=== PATIENT | female | born 1990 | race Asian ===

== ENCOUNTER 2016-05-23 07:32 | Emergency (ER) | payer OTHER ==
[2016-05-23] MEDS ORDERED: HYDROmorphone 1 MG/ML SYRINGE IVP STA ×2 (07:51→08:43)
[2016-05-23] MEDS ORDERED: ONDANSETRON 4 MG/2 ML VIAL IVP STA ×3 (07:51→11:54)
[2016-05-23] MEDS ORDERED: SODIUM CHLORIDE 0.9% 1,000 ML IV ONE ×2 (07:51→09:52)
[2016-05-23] MEDS ORDERED: ONDANSETRON 4 MG/2 ML VIAL ONE ×3 (08:09→11:55)
[2016-05-23] MEDS ORDERED: MORPHINE 2 MG/ML SYRINGE ONE (08:10)
[2016-05-23] MEDS ORDERED: HYDROmorphone 1 MG/ML SYRINGE ONE ×2 (08:14→08:47)
[2016-05-23] MEDS ORDERED: ACETAMINOPHEN 1,000 MG/100 ML 100 ML IV STA (11:53)
[2016-05-23] MEDS ORDERED: KETOROLAC 60 MG/2 ML VIAL IVP STA (11:53)
[2016-05-23] MEDS ORDERED: KETOROLAC 30 MG/ML VIAL ONE (11:55)
[2016-05-23] MEDS ORDERED: IOPAMIDOL-300 100 ML VIAL IVP ONE (12:21)
[2016-05-23] MEDS ORDERED: ACETAMINOPHEN 1,000 MG/100 ML 100 ML IV ONE (12:29)
[2016-05-23] MEDS ORDERED: PROMETHAZINE INJ 12.5 MG in SODIUM CHLORIDE 0.9% 50 ML IV STA (12:37)
[2016-05-23] MEDS ORDERED: PROMETHAZINE 25 MG/1 ML VIAL ONE (12:53)
== END 2016-05-23 14:23 | disposition home or self-care (01) ==
CPT/HCPCS: 36415; 74177; 76700; 76856; 80053; 81003; 81025; 83690; 84703; 85025; 93975; 96361; 96365; 96375; 96376; 99284; J0131; J1170; Q9967

== ENCOUNTER 2016-05-24 02:30 | Emergency (ER) | payer OTHER ==
[2016-05-24] MEDS ORDERED: HYDROmorphone 1 MG/ML SYRINGE IVP STA ×2 (04:09→06:35)
[2016-05-24] MEDS ORDERED: PROMETHAZINE INJ 12.5 MG in SODIUM CHLORIDE 0.9% 50 ML IV STA (04:09)
[2016-05-24] MEDS ORDERED: PROMETHAZINE 25 MG/1 ML VIAL ONE (04:13)
[2016-05-24] MEDS ORDERED: HYDROmorphone 1 MG/ML SYRINGE ONE ×2 (04:13→06:35)
[2016-05-24] MEDS ORDERED: KETOROLAC 60 MG/2 ML VIAL IVP STA (06:35)
[2016-05-24] MEDS ORDERED: KETOROLAC 30 MG/ML VIAL ONE (06:35)
== END 2016-05-24 08:06 | disposition home or self-care (01) ==
DX: R10.33 Periumbilical pain (principal); R10.31 Right lower quadrant pain; R11.0 Nausea
CPT/HCPCS: 36415; 85025; 96365; 96375; 96376; 99283; 99284; J1170

== ENCOUNTER 2016-05-26 13:33 | Observation (INO) | payer OTHER ==
[2016-05-26] MEDS ORDERED: HYDROmorphone 1 MG/ML SYRINGE IVP STA ×2 (13:52→15:13)
[2016-05-26] MEDS ORDERED: ONDANSETRON 4 MG/2 ML VIAL IVP STA (13:52)
[2016-05-26] MEDS ORDERED: ONDANSETRON 4 MG/2 ML VIAL ONE (14:02)
[2016-05-26] MEDS ORDERED: HYDROmorphone 1 MG/ML SYRINGE ONE ×2 (14:02→15:15)
[2016-05-26] MEDS ORDERED: SODIUM CHLORIDE 0.9% 1,000 ML IV ONE (14:14)
[2016-05-26] MEDS ORDERED: PROMETHAZINE INJ 25 MG in SODIUM CHLORIDE 0.9% 50 ML IV STA (15:14)
[2016-05-26] MEDS ORDERED: PROMETHAZINE 25 MG/1 ML VIAL ONE (15:15)
[2016-05-26] MEDS ORDERED: MORPHINE 2 MG/ML SYRINGE IVP STA (16:16)
[2016-05-26] MEDS ORDERED: ACETAMINOPHEN 1,000 MG/100 ML 100 ML IV STA (16:16)
[2016-05-26] MEDS ORDERED: MORPHINE 2 MG/ML SYRINGE ONE (16:38)
[2016-05-26] MEDS ORDERED: ACETAMINOPHEN 1,000 MG/100 ML 100 ML IV ONE (16:38)
[2016-05-26] MEDS ORDERED: MIDAZOLAM 2 MG/2 ML VIAL IVP ONE (17:28)
[2016-05-26] MEDS ORDERED: HYDROmorphone 1 MG/ML SYRINGE IVP ONE (17:28)
[2016-05-26] MEDS ORDERED: fentaNYL 100 MCG/2 ML VIAL IVP ONE (17:28)
[2016-05-26] MEDS ORDERED: SODIUM CHLORIDE 0.9% 500 ML IV ONE (17:58)
[2016-05-26] MEDS ORDERED: LACTATED RINGERS 1,000 ML IV ONE ×3 (17:58→20:33)
[2016-05-26] MEDS ORDERED: BUPIVACAINE 0.25%-EPI 1:200000 PF 30 ML VIAL SUBQ ONE ×2 (18:46)
[2016-05-26] MEDS ORDERED: MEPERIDINE 50 MG/ML SYRINGE ONE (20:53)
[2016-05-26] MEDS ORDERED: MIDAZOLAM 2 MG/2 ML VIAL ONE (21:02)
[2016-05-26] MEDS: fentaNYL 100 MCG/2 ML VIAL ONE ×2 (21:39→21:44)
[2016-05-26] MEDS ORDERED: LORazepam 2 MG/ML SYRINGE ONE (21:57)
[2016-05-26] MEDS ORDERED: METOCLOPRAMIDE 10 MG/2 ML VIAL IVP ONE (22:04)
[2016-05-26] MEDS ORDERED: HYDROcod/ACETAM 5/325 MG TABLET PO PRN (23:19)
[2016-05-26] MEDS ORDERED: PHENOL THROAT SPRAY 177 ML MM PRN (23:21)
[2016-05-27] MEDS: HYDROmorphone 1 MG/ML SYRINGE IVP PRN ×4 (00:04→06:35)
[2016-05-27] MEDS: ONDANSETRON 4 MG/2 ML VIAL IVP PRN ×3 (00:04→07:34)
[2016-05-27] MEDS: IBUPROFEN 600 MG TABLET PO SCH ×4 (00:05→21:33)
[2016-05-27] MEDS: LACTATED RINGERS 1,000 ML IV SCH ×3 (04:02→18:47)
[2016-05-27] MEDS ORDERED: HYDROmorphone 1 MG/ML SYRINGE IVP ONE (06:10)
[2016-05-27] MEDS ORDERED: ONDANSETRON 4 MG/2 ML VIAL IVP PRN ×2 (07:52→20:14)
[2016-05-27] MEDS ORDERED: HYDROmorphone 1 MG/ML SYRINGE IVP PRN (07:52)
[2016-05-27] MEDS ORDERED: SODIUM CHLORIDE FLUSH 0.9% 10 ML SYRINGE IVP ONE (08:20)
[2016-05-27] MEDS ORDERED: DOCUSATE SODIUM 100 MG CAPSULE PO SCH (09:00)
[2016-05-27] MEDS ORDERED: MAGNESIUM HYDROXIDE 2,400 MG/30 ML UDC PO PRN ×2 (10:37→20:17)
[2016-05-27] MEDS: HYDROcod/ACETAM 5/325 MG TABLET PO PRN ×2 (11:01→15:42)
[2016-05-27] MEDS ORDERED: PROCHLORPERAZINE 10 MG/2 ML VIAL IVP PRN (16:41)
[2016-05-27] MEDS ORDERED: fentaNYL 100 MCG/2 ML VIAL IVP PRN (16:44)
[2016-05-27] MEDS ORDERED: LIDOCAINE-MPF 2% 5 ML VIAL IM ONE (17:28)
[2016-05-27] MEDS ORDERED: ACETAMINOPHEN 1,000 MG/100 ML VIAL IV ONE (17:28)
[2016-05-27] MEDS ORDERED: NEOSTIGMINE 1 MG/1 ML 10 ML MDV IVP ONE (17:28)
[2016-05-27] MEDS ORDERED: SUCCINYLCHOLINE 200 MG/10 ML VIAL IVP ONE (17:28)
[2016-05-27] MEDS ORDERED: DEXAMETHASONE 4 MG/ML VIAL IVP ONE (17:28)
[2016-05-27] MEDS ORDERED: ROCURONIUM 50 MG/5 ML VIAL IVP ONE (17:28)
[2016-05-27] MEDS ORDERED: ONDANSETRON 4 MG/2 ML VIAL IVP ONE (17:28)
[2016-05-27] MEDS ORDERED: PROPOFOL 200 MG/20 ML VIAL IVP ONE (17:28)
[2016-05-27] MEDS ORDERED: GLYCOPYRROLATE 1 MG/5 ML VIAL IVP ONE (17:28)
[2016-05-27] MEDS ORDERED: ZOLPIDEM 5 MG TABLET PO PRN (21:58)
[2016-05-28] MEDS: LACTATED RINGERS 1,000 ML IV SCH ×3 (01:02→20:15)
[2016-05-28] MEDS: IBUPROFEN 600 MG TABLET PO SCH ×2 (06:36→13:17)
[2016-05-28] MEDS: HYDROcod/ACETAM 5/325 MG TABLET PO PRN ×3 (06:40→11:17)
[2016-05-28] MEDS ORDERED: BISACODYL 5 MG TABLET PO SCH (09:00)
[2016-05-28] MEDS ORDERED: HYDROcod/ACETAM 5/325 MG TABLET PO PRN (12:06)
[2016-05-28] MEDS ORDERED: ALPRAZolam 0.25 MG TABLET PO PRN (12:50)
[2016-05-28] MEDS ORDERED: CITALOPRAM 10 MG TABLET PO SCH (13:00)
[2016-05-28] MEDS ORDERED: MAGNESIUM CITRATE 296 ML BOTTLE PO PRN (13:21)
[2016-05-28] MEDS ORDERED: NORGESTREL-ETHINYL ESTRADIOL TABLET PO SCH (17:30)
== END 2016-05-28 20:20 | disposition home or self-care (01) ==
PROC: 0UB04ZZ Excision of Right Ovary, Percutaneous Endoscopic Approach (ICD-10-PCS; principal; 2016-05-26 16:15)
DX: N83.11 Corpus luteum cyst of right ovary (principal); K66.1 Hemoperitoneum; G89.18 Other acute postprocedural pain; D64.9 Anemia, unspecified; F41.9 Anxiety disorder, unspecified; N73.6 Female pelvic peritoneal adhesions (postinfective); K59.00 Constipation, unspecified; N94.6 Dysmenorrhea, unspecified; Z79.899 Other long term (current) drug therapy
CPT/HCPCS: 36415; 58662; 80053; 81001; 81025; 83690; 85025; 86850; 86900; 86901; 86920; 87491; 87591; 88305; 88342; 96361; 96365; 96375; 96376; 99217; 99218; 99284; A9270; J0131; J1170; J2060; J7120; S4993

== ENCOUNTER 2016-05-30 07:54 | Emergency (ER) | payer OTHER ==
[2016-05-30] MEDS ORDERED: SODIUM CHLORIDE 0.9% 1,000 ML IV ONE (09:19)
[2016-05-30] MEDS ORDERED: HYDROmorphone 1 MG/ML SYRINGE IVP STA ×2 (10:34→12:33)
[2016-05-30] MEDS ORDERED: ONDANSETRON 4 MG/2 ML VIAL IVP STA ×2 (10:34→12:33)
[2016-05-30] MEDS ORDERED: HYDROmorphone 1 MG/ML SYRINGE ONE ×2 (10:40→12:33)
[2016-05-30] MEDS ORDERED: ONDANSETRON 4 MG/2 ML VIAL ONE ×2 (10:40→12:34)
[2016-05-30] MEDS ORDERED: IOPAMIDOL-300 100 ML VIAL IVP ONE (12:25)
== END 2016-05-30 15:14 | disposition home or self-care (01) ==
DX: G89.18 Other acute postprocedural pain (principal); R10.2 Pelvic and perineal pain
CPT/HCPCS: 36415; 74177; 80053; 81001; 83690; 85025; 96361; 96374; 96375; 96376; 99284; J1170; Q9967

== ENCOUNTER 2016-06-03 | Outpatient (CLI) | payer OTHER | END 2016-06-03 13:26 | disposition critical access hospital (66) | CPT/HCPCS: A0425; A0427 ==

== ENCOUNTER 2016-06-03 13:43 | Observation (INO) | payer OTHER ==
[2016-06-03] MEDS ORDERED: SODIUM CHLORIDE 0.9% 1,000 ML IV ONE (13:57)
[2016-06-03] MEDS ORDERED: ACETAMINOPHEN 1,000 MG/100 ML 100 ML IV STA (13:57)
[2016-06-03] MEDS ORDERED: LORazepam 2 MG/ML SYRINGE IVP STA ×2 (14:51→17:12)
[2016-06-03] MEDS ORDERED: LORazepam 2 MG/ML SYRINGE ONE ×2 (14:54→17:06)
[2016-06-03] MEDS ORDERED: MORPHINE 2 MG/ML SYRINGE IVP STA (15:46)
[2016-06-03] MEDS ORDERED: MORPHINE 2 MG/ML SYRINGE ONE (15:50)
[2016-06-03] MEDS ORDERED: IOPAMIDOL-300 100 ML VIAL IVP ONE (16:32)
[2016-06-03] MEDS ORDERED: ACETAMINOPHEN 325 MG TABLET PO PRN (17:43)
[2016-06-03] MEDS ORDERED: oxyCODONE 5 MG TABLET PO PRN (17:43)
[2016-06-03] MEDS ORDERED: ONDANSETRON 4 MG/2 ML VIAL IVP PRN (17:43)
[2016-06-03] MEDS ORDERED: SODIUM CHLORIDE FLUSH 0.9% 10 ML SYRINGE IVP PRN (17:43)
[2016-06-03] MEDS ORDERED: TEMAZEPAM 15 MG CAPSULE PO PRN (17:43)
[2016-06-03] MEDS ORDERED: NS W/20 MEQ KCL 1,000 ML IV SCH (18:00)
[2016-06-03] MEDS ORDERED: ALPRAZolam 0.25 MG TABLET PO PRN (18:14)
[2016-06-03] MEDS ORDERED: POLYETHYLENE GLYCOL 3350 17 GM PACKET PO SCH (19:37)
[2016-06-03] MEDS: SODIUM CHLORIDE 0.9% 1,000 ML IV SCH (20:18)
[2016-06-03] MEDS ORDERED: PROMETHAZINE INJ 25 MG in SODIUM CHLORIDE 0.9% 50 ML IV PRN (22:04)
[2016-06-03] MEDS: IBUPROFEN 600 MG TABLET PO SCH (22:45)
[2016-06-03] MEDS: oxyCODONE 5 MG TABLET PO PRN (22:46)
[2016-06-03] MEDS: SODIUM CHLORIDE FLUSH 0.9% 10 ML SYRINGE IVP SCH (22:46)
[2016-06-04] MEDS: oxyCODONE 5 MG TABLET PO PRN (06:21)
[2016-06-04] MEDS: SODIUM CHLORIDE 0.9% 1,000 ML IV SCH (06:22)
[2016-06-04] MEDS: IBUPROFEN 600 MG TABLET PO SCH ×2 (06:22→13:29)
[2016-06-04] MEDS: SODIUM CHLORIDE FLUSH 0.9% 10 ML SYRINGE IVP SCH ×2 (07:08→14:03)
[2016-06-04] MEDS ORDERED: POLYETHYLENE GLYCOL 3350 17 GM PACKET PO SCH (09:00)
[2016-06-04] MEDS ORDERED: NORGESTREL-ETHINYL ESTRADIOL TABLET PO SCH (09:00)
[2016-06-04] MEDS ORDERED: BISACODYL 5 MG TABLET PO SCH (09:00)
[2016-06-04] MEDS ORDERED: CITALOPRAM 10 MG TABLET PO SCH (09:00)
[2016-06-04] MEDS ORDERED: IRON SUCROSE 300 MG in SODIUM CHLORIDE 0.9% 250 ML IV ONE (12:00)
== END 2016-06-04 16:00 | disposition home or self-care (01) ==
DX: R55 Syncope and collapse (principal); G89.18 Other acute postprocedural pain; R10.30 Lower abdominal pain, unspecified; D50.0 Iron deficiency anemia secondary to blood loss (chronic); F41.9 Anxiety disorder, unspecified; F43.21 Adjustment disorder with depressed mood; S09.90XA Unspecified injury of head, initial encounter; W18.2XXA Fall in (into) shower or empty bathtub, initial encounter; Z98.890 Other specified postprocedural states
CPT/HCPCS: 36415; 70450; 71275; 76856; 80053; 81001; 81025; 82728; 83540; 83605; 83690; 83735; 84100; 84439; 84443; 84466; 85025; 85379; 85610; 85651; 85730; 86140; 86850; 86900; 86901; 87040; 93005; 93010; 93975; 96361; 96365; 96367; 96375; 96376; 99217; 99218; 99284; A9270; J1756; J2060; J7040; Q9967

== ENCOUNTER 2016-06-30 14:44 | Outpatient (CLI) | payer OTHER | END 2016-06-30 14:45 | disposition home or self-care (01) | DX: D50.9 Iron deficiency anemia, unspecified (principal) ==

== ENCOUNTER 2016-07-17 08:00 | Outpatient (CLI) | payer OTHER | END 2016-07-17 08:01 | disposition home or self-care (01) | DX: H60.90 Unspecified otitis externa, unspecified ear (principal); N83.209 Unspecified ovarian cyst, unspecified side ==

== ENCOUNTER 2017-09-25 22:39 | Emergency (ER) | payer OTHER ==
--- NOTE | 2017-09-25 23:42 | ED Physician Documentation ---
PD HPI ABD PAIN - Stated complaint Stated Complaint: RLQ PX/N/V - Chief complaint Chief Complaint: Abd Pain - History obtained from History obtained from: Patient - History of Present Illness Timing - onset: How many days ago (nausea x 3 days, vomiting and abd. pain today ) Timing - duration: Days Timing - details: Gradual onset Pain level now: 6 Quality: Pain Location: Periumbilical (left abdomen) Radiation: Other (no radiation) Worsened by: Palpation Associated symptoms: Nausea, Vomiting. 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 HEENT: None Psych: Anxiety Musculoskeletal: Osteoarthritis Derm: None - Past Surgical History Past Surgical History: Yes /CHIEF WELLNESS OFFICER: Other - Present Medications Home Medications: Ambulatory Orders Medication Instructions Recorded Confirmed Citalopram [CeleXA] 10 mg ORAL DAILY 05/30/16 06/06/16 ALPRAZolam [Xanax] 0.25 mg PO Q6H PRN #0 tablet 06/04/16 06/06/16 Bisacodyl [Dulcolax] 10 mg PO DAILY tablet 06/04/16 06/06/16 Ibuprofen [Motrin] 600 mg PO TID tablet 06/04/16 06/06/16 Norgestrel-Ethinyl Estradiol 1 tab PO DAILY tablet 06/04/16 06/06/16 [Ogestrel] oxyCODONE [Roxicodone] 5 mg PO Q4HR PRN #0 tablet 06/04/16 06/06/16 Promethazine [Phenergan] 1 tab ORAL Q6HR 06/06/16 06/06/16 Promethazine [Phenergan] 25 - 50 mg PO Q6H PRN #10 tab 09/26/17 oxyCODONE/ACET 5/325 [Percocet 5 1 - 2 each PO Q6H PRN #14 tablet 09/26/17 mg/325 mg] - Allergies Allergies/Adverse Reactions: Allergies Allergy/AdvReac Type Severity Reaction Status Date / Time No Known Drug Allergies Allergy Verified 09/25/17 22:50 - Social History Does the pt smoke?: No Smoking Status: Never smoker Does the pt drink ETOH?: No Does the pt have substance abuse?: No - Immunizations Immunizations are current?: Yes - POLST Patient has POLST: No PD ED PE NORMAL - Vitals Vital signs reviewed: Yes - General General: Alert and oriented X 3, No acute distress, Well developed/nourished - HEENT HEENT: Moist mucous membranes - Cardiac Cardiac: RRR, No murmur - Respiratory Respiratory: No respiratory distress, Clear bilaterally - Abdomen Abdomen: Soft, Non distended - Back Back: No CVA TTP - Derm Derm: Normal color, Warm and dry, No rash PD ED PE EXPANDED - Abdomen Abdomen: Tender to palpation, Left abdomen. No: Rebound, Guarding Results - Vitals Vitals: Oxygen O2 Source Room air - Labs Labs: Laboratory Tests 09/25/17 09/25/17 09/26/17 23:38 23:38 00:20 WBC 9.7 RBC 4.65 Hgb 13.6 Hct 40.8 MCV 87.7 MCH 29.2 MCHC 33.3 RDW 13.6 Plt Count 325 MPV 7.3 L Neut # (Auto) 5.8 Lymph # (Auto) 2.8 [place] # (Auto) 0.6 Eos # (Auto) 0.4 Baso # (Auto) 0.1 Absolute Nucleated RBC 0.01 Nucleated RBC % 0.1 Sodium Potassium Chloride Carbon Dioxide Anion Gap BUN Creatinine Estimated GFR (MDRD) Glucose Calcium Total Bilirubin AST ALT Alkaline Phosphatase Total Protein Albumin Globulin Albumin/Globulin Ratio Lipase Urine Color YELLOW Urine Clarity CLEAR Urine pH 6.5 Ur Specific [place] 1.020 1.020 Urine Protein NEGATIVE Urine Glucose (UA) NEGATIVE Urine Ketones NEGATIVE Urine Occult Blood NEGATIVE Urine Nitrite NEGATIVE Urine Bilirubin NEGATIVE Urine Urobilinogen 0.2 (NORMAL) Ur Leukocyte Esterase TRACE H Urine RBC 0-5 Urine WBC 6-10 H Ur Squamous Epith Cells MOD Squamous H Amorphous Sediment Moderate Urine Bacteria Few Ur Microscopic Review INDICATED Urine Culture Comments NOT INDICATED Urine HCG, Qual NEGATIVE 09/26/17 00:20 WBC RBC Hgb Hct MCV MCH MCHC RDW Plt Count MPV Neut # (Auto) Lymph # (Auto) [place] # (Auto) Eos # (Auto) Baso # (Auto) Absolute Nucleated RBC Nucleated RBC % Sodium 138 Potassium 3.8 Chloride 103 Carbon Dioxide 25 Anion Gap 10.0 BUN 13 Creatinine 0.6 Estimated GFR (MDRD) 119 Glucose 106 H Calcium 9.0 Total Bilirubin 0.3 AST 24 ALT 21 Alkaline Phosphatase 61 Total Protein 7.3 Albumin 4.1 Globulin 3.2 Albumin/Globulin Ratio 1.3 Lipase 35 Urine Color Urine Clarity Urine pH Ur Specific [place] Urine Protein Urine Glucose (UA) Urine Ketones Urine Occult Blood Urine Nitrite Urine Bilirubin Urine Urobilinogen Ur Leukocyte Esterase Urine RBC Urine WBC Ur Squamous Epith Cells Amorphous Sediment Urine Bacteria Ur Microscopic Review Urine Culture Comments Urine HCG, Qual - Rads (name of study) CT A/P Radiology: Prelim report reviewed, See rad report PD MEDICAL DECISION MAKING - ED course Complexity details: reviewed results, re-evaluated patient, considered differential, d/w patient - Sepsis Event Vital Signs: Oxygen O2 Source Room air Departure - Departure Disposition: 01 Home, Self Care Clinical Impression: Abdominal pain Qualifiers: Abdominal location: generalized Qualified Code(s): R10.84 - Generalized abdominal pain Condition: Good Instructions: ED Abdominal Pain Unkn Cause Follow-Up: Kirsty Mckeon PA-C [Primary Care Provider] - Within 3 Days Prescriptions: oxyCODONE/ACET 5/325 [Percocet 5 mg/325 mg] 1 - 2 each PO Q6H PRN #14 tablet PRN Reason: Pain Promethazine [Phenergan] 25 - 50 mg PO Q6H PRN #10 tab PRN Reason: Nausea / Vomiting Forms: Activity restrictions Discharge Date/Time: 09/26/17 03:15
[2017-09-25 23:49] LABS: BILIRUBIN,URINE NEGATIVE (NEGATIVE); GLUCOSE, URINE (UA) NEGATIVE (NEGATIVE); KETONES,URINE (UA) NEGATIVE (NEGATIVE); LEUKOCYTE ESTERASE, URINE TRACE (NEGATIVE); NITRITE,URINE NEGATIVE (NEGATIVE); OCCULT BLOOD,URINE NEGATIVE (NEGATIVE); PH,URINE 6.5 PH (5.0-7.5); PROTEIN,URINE NEGATIVE (NEGATIVE); UROBILINOGEN,URINE 0.2 (NORMAL) E.U./dL (NORMAL)
[2017-09-25 23:51] LABS: CLARITY,URINE CLEAR (CLEAR); HCG UR QUAL NEGATIVE
[2017-09-25 23:55] LABS: AMORPHOUS SEDIMENT,UR Moderate /LPF; BACTERIA,URINE Few /HPF (None Seen); RBC,URINE 0-5 /HPF (0-5); SQUAMOUS EPITHELIAL CELL,UR MOD Squamous (<= Few)
[2017-09-26] MEDS: SODIUM CHLORIDE 0.9% 1,000 ML IV STA (00:18)
[2017-09-26] MEDS: HYDROmorphone 1 MG/ML CARPUJECT IVP STA ×3 (00:18→02:57)
[2017-09-26] MEDS: PROMETHAZINE INJ 25 MG in SODIUM CHLORIDE 0.9% 50 ML IV STA (00:22)
[2017-09-26 00:30] LABS: BASOPHILS # (AUTO) 0.1 10^3/uL (0.0-0.1); BASOPHILS % (AUTO) 0.8 %; EOSINOPHILS # (AUTO) 0.4 10^3/uL (0.0-0.7); EOSINOPHILS % (AUTO) 4.4 %; HGB - HEMOGLOBIN 13.6 g/dL (12.0-16.0); LYMPHOCYTES # (AUTO) 2.8 10^3/uL (1.5-3.5); LYMPHOCYTES % (AUTO) 29.1 %; MEAN CORPUSCULAR HEMOGLOBIN 29.2 pg (27.0-31.0); MEAN CORPUSCULAR HGB CONC 33.3 g/dL (32.0-36.0); MEAN CORPUSCULAR VOLUME 87.7 fL (81.0-99.0); MEAN PLATELET VOLUME 7.3 fL (7.9-10.8); MONOCYTES # (AUTO) 0.6 10^3/uL (0.0-1.0); MONOCYTES % (AUTO) 6.3 %; NEUTROPHILS # (AUTO) 5.8 10^3/uL (1.5-6.6); NEUTROPHILS % (AUTO) 59.4 %; PLT - PLATELET COUNT 325 10^3/uL (130-450); RED BLOOD COUNT 4.65 10^6/uL (4.20-5.40); RED CELL DISTRIBUTION WIDTH 13.6 % (12.0-15.0); WHITE BLOOD COUNT 9.7 x10^3/uL (4.8-10.8)
[2017-09-26 00:39] LABS: ALBUMIN 4.1 g/dL (3.2-5.5); ALBUMIN/GLOBULIN RATIO 1.3 (1.0-2.2); BILIRUBIN,TOTAL 0.3 mg/dL (0.2-1.0); CREATININE 0.6 mg/dL (0.4-1.0); TOTAL PROTEIN 7.3 g/dL (6.7-8.2)
[2017-09-26] MEDS ORDERED: IOPAMIDOL-300 100 ML VIAL ONE (00:56)
[2017-09-26] MEDS: IOPAMIDOL-300 100 ML VIAL IVP ONE (01:15)
--- NOTE | 2017-09-26 01:33 | CT Report ---
Procedure Date: 09/26/2017 Accession Number: [id number] / [id number] Procedure: CT - Abdomen/Pelvis W/ CPT Code: FULL RESULT: EXAM: CT ABDOMEN AND PELVIS EXAM DATE: 09/26/2017 01:16 AM. CLINICAL HISTORY: Abdomen pain. COMPARISONS: Abdomen and pelvis w/ 05/30/2016. TECHNIQUE: Routine helical CT imaging was performed through the abdomen and pelvis. IV contrast: Yes. Enteric contrast: No. Reconstructions: Coronal and sagittal. In accordance with CT protocol optimization, one or more of the following dose reduction techniques were utilized for this exam: automated exposure control, adjustment of mA and/or KV based on patient size, or use of iterative reconstructive technique. FINDINGS: Lung Bases: Unremarkable. Liver: Unremarkable. No suspicious masses. Gallbladder/Bile Ducts: Unremarkable. Spleen: Unremarkable. Pancreas: Unremarkable. Adrenal Glands: Unremarkable. Kidneys: Unremarkable. No suspicious masses or hydronephrosis. Peritoneal Cavity/Bowel: No bowel obstruction or inflammatory process seen. No free air or significant free fluid. No masses or adenopathy. The appendix is normal. No excessive stool burden. Pelvic Organs: Bladder, uterus, and adnexa appear unremarkable. Vasculature: No aneurysms or other significant abnormality. Bones: No significant abnormality. Other: None. IMPRESSION: Normal abdomen and pelvis CT. [facility]
[2017-09-26] MEDS: oxyCODONE/ACET 5/325 Prepack 4 PO STA (02:58)
[2017-09-26 03:03] VITALS: BP 141/88
[2017-09-26] MEDS: HYDROcod/ACETAM 5/325 MG TABLET PO STA (03:07)
== END 2017-09-26 03:15 | disposition home or self-care (01) ==
LOC: ED 22:39
DX: R10.84 Generalized abdominal pain (principal)
CPT/HCPCS: 36415; 74177; 80053; 81001; 81025; 83690; 85025; 96365; 96375; 96376; 99283; 99284; J1170; J7040; Q9967; 81003; 87086

== ENCOUNTER 2017-12-22 23:35 | Emergency (ER) | payer OTHER ==
[2017-12-23] MEDS ORDERED: KETOROLAC 60 MG/2 ML VIAL IM STA (00:08)
[2017-12-23] MEDS ORDERED: ACETAMINOPHEN 500 MG TABLET PO STA (00:23)
--- NOTE | 2017-12-23 01:16 | CT Report ---
Reason: neck pain Procedure Date: 12/23/2017 Accession Number: [id number] / [id number] Procedure: CT - Cervical Spine W/O CPT Code: FULL RESULT: EXAM: CT CERVICAL SPINE WITHOUT CONTRAST DATE: 12/23/2017 12:37 AM. HISTORY: Neck pain. COMPARISONS: CERVICAL SPINE W/O 01/24/2016 11:10 AM. TECHNIQUE: Thin-section axial images were acquired of the cervical spine without contrast. Post-processing: Coronal and sagittal reformats. Other: None. In accordance with CT protocol optimization, one or more of the following dose reduction techniques were utilized for this exam: automated exposure control, adjustment of mA and/or KV based on patient size, or use of iterative reconstructive technique. FINDINGS: Alignment: Dextrocurvature in the lower cervical region may be positional. There is no spondylolisthesis. Bones: No fracture or bone lesion. Interspace Levels/Facets: C1-C2: Unremarkable. C2-C3: Unremarkable. C3-C4: Unremarkable. C4-C5: Unremarkable. C5-C6: A small calcified central protrusion is present without spinal canal or foraminal stenosis. C6-C7: Unremarkable. C7-T1: Unremarkable. Musculature: Normal. No fatty atrophy. Other: The paravertebral and prevertebral soft tissues are unremarkable. The lung apices are clear. IMPRESSION: No acute cervical spine fracture. [facility]
--- NOTE | 2017-12-23 01:29 | ED Physician Documentation ---
PD HPI NECK PAIN - Stated complaint Stated Complaint: NECK PX - Chief complaint Chief Complaint: Trauma Hd/Nk - History obtained from History obtained from: Patient - Additional information Additional information: 27-year-old female presents the emergency department with complaints of neck pain. The patient reports injuring her neck at work while attempting to help patient move. The patient had an episode of paresthesias into her arms. The patient denies any current sensation of paresthesias. The patient denies motor weakness or sensory changes in her upper extremities. The patient denies he adache, vision changes or lower extremity weakness. The patient reports a history of prior neck pain. No fevers, no chills no history of IV drug use or saddle anesthesia. Symptoms are described as moderate. 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 HEENT: None Psych: Anxiety Musculoskeletal: Osteoarthritis Derm: None - Past Surgical History Past Surgical History: Yes /COMPENSATION EXPERT: Other - Present Medications Home Medications: Ambulatory Orders Medication Instructions Recorded Confirmed Citalopram [CeleXA] 10 mg ORAL DAILY 05/30/16 06/06/16 ALPRAZolam [Xanax] 0.25 mg PO Q6H PRN #0 tablet 06/04/16 06/06/16 Bisacodyl [Dulcolax] 10 mg PO DAILY tablet 06/04/16 06/06/16 Ibuprofen [Motrin] 600 mg PO TID tablet 06/04/16 06/06/16 Norgestrel-Ethinyl Estradiol 1 tab PO DAILY tablet 06/04/16 06/06/16 [Ogestrel] oxyCODONE [Roxicodone] 5 mg PO Q4HR PRN #0 tablet 06/04/16 06/06/16 Promethazine [Phenergan] 1 tab ORAL Q6HR 06/06/16 06/06/16 Promethazine [Phenergan] 25 - 50 mg PO Q6H PRN #10 tab 09/26/17 oxyCODONE/ACET 5/325 [Percocet 5 1 - 2 each PO Q6H PRN #14 tablet 09/26/17 mg/325 mg] Cyclobenzaprine [Flexeril] 10 mg PO TID PRN #20 tablet 12/23/17 - Allergies Allergies/Adverse Reactions: Allergies Allergy/AdvReac Type Severity Reaction Status Date / Time No Known Drug Allergies Allergy Verified 12/22/17 23:46 - Social History Does the pt smoke?: No Smoking Status: Never smoker Does the pt drink ETOH?: No Does the pt have substance abuse?: No - Immunizations Immunizations are current?: Yes - POLST Patient has POLST: No PD ED PE NORMAL - General General: Alert and oriented X 3, No acute distress - HEENT HEENT: Atraumatic, PERRL, EOMI, Ears normal - Neck Neck: Supple, no meningeal sign, Other (The patient has some mild midline tenderness. The patient has significant paraspinal tenderness. There is no erythematous changes. There is no bogginess, no crepitus or swelling.) - Cardiac Cardiac: RRR - Respiratory Respiratory: No respiratory distress - Extremities Extremities: No deformity, Normal ROM s pain - Neuro Neuro: Alert and oriented X 3, No motor deficit, Normal speech, Other (The patient has equal apparel designer strength, the patient has normal motor strength in bilateral upper extremities. The patient has normal cap refill and normal sensation light touch in the upper extremities. The patient has normal radial pulses bilaterally) - Psych Psych: Normal affect Results - Vitals Vitals: Vital Signs - 24 hr 12/22/17 12/23/17 12/23/17 23:40 00:09 00:21 Temperature 36.2 C L 36.6 C Heart Rate 93 85 85 Respiratory 18 16 Rate Blood Pressure 131/102 H 143/101 H 128/110 H O2 Saturation 96 98 99 Oxygen O2 Source Room air - Rads (name of study) CT cervical spine Radiology: Final report received (No acute cervical spine fracture. ) PD MEDICAL DECISION MAKING - ED course ED course: Currently, the patient appears appropriate for discharge home and ongoing outpatient management. I recommended that she follow-up with primary care so that they can arrange for outpatient physical therapy and possibly an MRI as an outpatient. I discussed warning signs and recommended returning to the emergency department immediately for any worsening or any concerns. - Sepsis Event Vital Signs: Vital Signs - 24 hr 12/22/17 12/23/17 12/23/17 23:40 00:09 00:21 Temperature 36.2 C L 36.6 C Heart Rate 93 85 85 Respiratory 18 16 Rate Blood Pressure 131/102 H 143/101 H 128/110 H O2 Saturation 96 98 99 Oxygen O2 Source Room air Departure - Departure Disposition: 01 Home, Self Care Clinical Impression: Cervical strain, acute Qualifiers: Encounter type: initial encounter Qualified Code(s): S16.1XXA - Strain of muscle, fascia and tendon at neck level, initial encounter Condition: Good Instructions: ED Sprain Strain Neck Follow-Up: Kirsty Mckeon PA-C [Primary Care Provider] - (Please ask your care physicians wet process assistant head miller to arrange for an outpatient referral to physical therapy and possibly for an outpatient MRI) Prescriptions: Cyclobenzaprine [Flexeril] 10 mg PO TID PRN #20 tablet PRN Reason: Spasms Comments: Please return to the emergency department for worsening symptoms or any concerns
[2017-12-23 01:46] VITALS: BP 155/99
== END 2017-12-23 01:47 | disposition home or self-care (01) ==
LOC: ED 23:35
DX: S16.1XXA Strain of muscle, fascia and tendon at neck level, initial encounter (principal); X50.0XXA Overexertion from strenuous movement or load, initial encounter; Y93.F2 Activity, caregiving, lifting; Y92.89 Other specified places as the place of occurrence of the external cause; Y99.0 Civilian activity done for income or pay
CPT/HCPCS: 72125; 99283; A9270

== ENCOUNTER 2018-05-17 08:45 | Emergency (ER) | payer BC, OTHER ==
[2018-05-17 08:53] VITALS: BP 164/100
[2018-05-17] MEDS ORDERED: SODIUM CHLORIDE 0.9% 1,000 ML IV ONE (09:24)
[2018-05-17] MEDS ORDERED: PROCHLORPERAZINE 10 MG/2 ML VIAL IVP STA (09:25)
[2018-05-17] MEDS ORDERED: diphenhydrAMINE INJ 50 MG/ML VIAL IVP STA (09:25)
[2018-05-17] MEDS ORDERED: DEXAMETHASONE 10 MG/ML VIAL IVP STA (09:25)
[2018-05-17 09:57] LABS: BASOPHILS # (AUTO) 0.1 10^3/uL (0.0-0.1); BASOPHILS % (AUTO) 1.1 %; EOSINOPHILS # (AUTO) 0.2 10^3/uL (0.0-0.7); EOSINOPHILS % (AUTO) 2.6 %; HGB - HEMOGLOBIN 13.6 g/dL (12.0-16.0); LYMPHOCYTES # (AUTO) 2.5 10^3/uL (1.5-3.5); LYMPHOCYTES % (AUTO) 35.7 %; MEAN CORPUSCULAR HEMOGLOBIN 29.9 pg (27.0-31.0); MEAN CORPUSCULAR VOLUME 82.9 fL (81.0-99.0); MONOCYTES # (AUTO) 0.5 10^3/uL (0.0-1.0); MONOCYTES % (AUTO) 7.3 %; NEUTROPHILS # (AUTO) 3.7 10^3/uL (1.5-6.6); NEUTROPHILS % (AUTO) 53.3 %; PLT - PLATELET COUNT 309 10^3/uL (130-450); RED BLOOD COUNT 4.56 10^6/uL (4.20-5.40); RED CELL DISTRIBUTION WIDTH 12.9 % (12.0-15.0); WHITE BLOOD COUNT 6.9 x10^3/uL (4.8-10.8)
[2018-05-17 10:09] LABS: BILIRUBIN,URINE NEGATIVE (NEGATIVE); GLUCOSE, URINE (UA) NEGATIVE (NEGATIVE); KETONES,URINE (UA) NEGATIVE (NEGATIVE); LEUKOCYTE ESTERASE, URINE MODERATE (NEGATIVE); NITRITE,URINE NEGATIVE (NEGATIVE); OCCULT BLOOD,URINE NEGATIVE (NEGATIVE); PROTEIN,URINE NEGATIVE (NEGATIVE); UROBILINOGEN,URINE 0.2 (NORMAL) E.U./dL (NORMAL)
[2018-05-17 10:10] LABS: CLARITY,URINE HAZY (CLEAR)
[2018-05-17 10:11] LABS: HCG UR QUAL NEGATIVE
[2018-05-17 10:11] LABS: ALBUMIN 4.2 g/dL (3.2-5.5); ALBUMIN/GLOBULIN RATIO 1.4 (1.0-2.2); BILIRUBIN,TOTAL 0.6 mg/dL (0.2-1.0); CREATININE 0.5 mg/dL (0.4-1.0); TOTAL PROTEIN 7.2 g/dL (6.7-8.2)
[2018-05-17 10:16] LABS: BACTERIA,URINE Few /HPF (None Seen); RBC,URINE None Seen /HPF (0-5); SQUAMOUS EPITHELIAL CELL,UR MANY Squamous (<= Few)
--- NOTE | 2018-05-17 10:34 | CT Report ---
Reason: New onset headache, with diplopia. Procedure Date: 05/17/2018 Accession Number: [id number] / [id number] Procedure: CT - Head W/O CPT Code: FULL RESULT: EXAM: CT HEAD EXAM DATE: 05/17/2018 10:16 AM. CLINICAL HISTORY: New onset headache, with diplopia. COMPARISON: HEAD W/O 06/03/2016 2:43 PM. TECHNIQUE: Multiaxial CT images were obtained from the foramen magnum to the vertex. Reformats: Sagittal and coronal. IV contrast: None. In accordance with CT protocol optimization, one or more of the following dose reduction techniques were utilized for this exam: automated exposure control, adjustment of mA and/or KV based on patient size, or use of iterative reconstructive technique. FINDINGS: Parenchyma: No intraparenchymal hemorrhage. No evidence of mass, midline shift, or CT findings of infarction. Subramanian-white differentiation is distinct. Extraaxial Spaces: Normal for age. No subdural or epidural collections identified. Ventricles: Normal in size and position. Sinuses and Orbits: Mild right posterior ethmoid sinus disease. Remainder of the paranasal sinuses and mastoid air cells are clear. Bones: No evidence of fracture or calvarial defect. Other: Globes and orbits are unremarkable. IMPRESSION: 1. No acute intracranial abnormality is identified. [facility]
--- NOTE | 2018-05-17 10:42 | ED Physician Documentation ---
History of Present Illness - Stated complaint Stated Complaint: VISION CHANGES/N/V - Chief complaint Chief Complaint: Neuro - History obtained from History obtained from: Patient - History of Present Illness Timing: How many days ago (2) - Treatment prior to arrival Treatment prior to arrival: Meclizine and Phenergan without relief. - Additonal information Additional information: The patient is a 27-year-old female who presents with dizziness that started 2 days ago, and is worse today. She describes it as vertigo. She reports associated headache with pressure in the left temporal region. She has had associated nausea, with vomiting 3 times since last night. She also reports photosensitivity. She denies fever, sore throat, cough, numbness or weakness. She denies history of similar symptoms in the past. She tried taking meclizine and Phenergan which had been prescribed for her mother 2 years ago. That did not provide relief. Review of Systems Constitutional: reports: Other (Dizziness, described as vertigo.). denies: Fever Eyes: reports: Photophobia Ears: denies: Tinnitus/ringing Nose: denies: Congestion Throat: denies: Sore throat Cardiac: denies: Chest pain / pressure Respiratory: denies: Dyspnea, Cough GI: reports: Nausea, Vomiting. denies: Abdominal Pain : reports: LMP (3 weeks ago.). denies: Dysuria Skin: denies: Rash Musculoskeletal: denies: Neck pain, Back pain Neurologic: reports: Headache (left sided). 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 : None HEENT: None Psych: Anxiety Musculoskeletal: Osteoarthritis Derm: None - Past Surgical History Past Surgical History: Yes /BUSINESS EXCELLENCE MANAGER: Other - Present Medications Home Medications: Ambulatory Orders Medication Instructions Recorded Confirmed Norgestrel-Ethinyl Estradiol 1 tab PO DAILY tablet 06/04/16 05/17/18 [Ogestrel] Promethazine [Phenergan] 1 tab ORAL Q6HR 06/06/16 05/17/18 Escitalopram [Lexapro] 10 mg PO DAILY 05/17/18 05/17/18 Meclizine HCl [Motion Sickness 25 mg PO TID PRN #20 tablet 05/17/18 Relief] Ondansetron Odt [Zofran] 4 mg TL Q6H PRN #10 tablet 05/17/18 - Allergies Allergies/Adverse Reactions: Allergies Allergy/AdvReac Type Severity Reaction Status Date / Time No Known Drug Allergies Allergy Verified 05/17/18 08:53 - Social History Does the pt smoke?: No Smoking Status: Never smoker Does the pt drink ETOH?: No Does the pt have substance abuse?: No - Immunizations Immunizations are current?: Yes - POLST Patient has POLST: No PD ED PE NORMAL - Vitals Vital signs reviewed: Yes (Initially hypertensive.) - General General: Alert and oriented X 3, Well developed/nourished - HEENT HEENT: Atraumatic, PERRL, EOMI, Ears normal, Pharynx benign, Other (Fundi without papilledema.) - Neck Neck: Supple, no meningeal sign, No adenopathy - Cardiac Cardiac: RRR - Respiratory Respiratory: No respiratory distress, Clear bilaterally - Abdomen Abdomen: Soft, Non tender - Back Back: No CVA TTP - Derm Derm: No rash - Extremities Extremities: No edema, No calf tenderness / cord - Neuro Neuro: Alert and oriented X 3, No motor deficit, No sensory deficit, Normal speech Eye Opening: Spontaneous Motor: Obeys Commands Verbal: Oriented GCS Score: 15 Results - Vitals Vitals: Oxygen O2 Source Room air - Labs Labs: Laboratory Tests 05/17/18 05/17/18 05/17/18 09:40 09:40 09:40 WBC 6.9 RBC 4.56 Hgb 13.6 Hct 37.8 MCV 82.9 MCH 29.9 MCHC 36.0 RDW 12.9 Plt Count 309 MPV 7.0 L Neut # (Auto) 3.7 Lymph # (Auto) 2.5 [place] # (Auto) 0.5 Eos # (Auto) 0.2 Baso # (Auto) 0.1 Absolute Nucleated RBC 0.00 Nucleated RBC % 0.0 ESR 8 Sodium 138 Potassium 3.3 L Chloride 102 Carbon Dioxide 25 Anion Gap 11.0 BUN 8 Creatinine 0.5 Estimated GFR (MDRD) 147 Glucose 100 Calcium 9.0 Total Bilirubin 0.6 AST 19 ALT 16 Alkaline Phosphatase 67 Total Protein 7.2 Albumin 4.2 Globulin 3.0 Albumin/Globulin Ratio 1.4 Lipase 33 Urine Color Urine Clarity Urine pH Ur Specific [place] Urine Protein Urine Glucose (UA) Urine Ketones Urine Occult Blood Urine Nitrite Urine Bilirubin Urine Urobilinogen Ur Leukocyte Esterase Urine RBC Urine WBC Ur Squamous Epith Cells Urine Bacteria Ur Microscopic Review Urine Culture Comments Urine HCG, Qual 05/17/18 10:02 WBC RBC Hgb Hct MCV MCH MCHC RDW Plt Count MPV Neut # (Auto) Lymph # (Auto) [place] # (Auto) Eos # (Auto) Baso # (Auto) Absolute Nucleated RBC Nucleated RBC % ESR Sodium Potassium Chloride Carbon Dioxide Anion Gap BUN Creatinine Estimated GFR (MDRD) Glucose Calcium Total Bilirubin AST ALT Alkaline Phosphatase Total Protein Albumin Globulin Albumin/Globulin Ratio Lipase Urine Color YELLOW Urine Clarity HAZY Urine pH 7.0 Ur Specific [place] 1.020 Urine Protein NEGATIVE Urine Glucose (UA) NEGATIVE Urine Ketones NEGATIVE Urine Occult Blood NEGATIVE Urine Nitrite NEGATIVE Urine Bilirubin NEGATIVE Urine Urobilinogen 0.2 (NORMAL) Ur Leukocyte Esterase MODERATE H Urine RBC None Seen Urine WBC 11-25 H Ur Squamous Epith Cells MANY Squamous H Urine Bacteria Few Ur Microscopic Review INDICATED Urine Culture Comments NOT INDICATED Urine HCG, Qual NEGATIVE - Rads (name of study) Head CT w/o Radiology: Prelim report reviewed, EMP read contemporaneously, See rad report (No acute intracranial abnormality is identified.) PD MEDICAL DECISION MAKING - ED course Complexity details: reviewed results, re-evaluated patient, considered differential, d/w patient, d/w family ED course: The patient's presentation is significant for headache and vertiginous symptoms, the etiology of which is uncertain. It may be migraine. A head CT was performed and is negative. There is no clinical evidence of intracranial hemorrhage. Sedimentation rate is normal, making temporal arteritis unlikely. Her presentation does not suggest meningitis. Treatment in the emergency department included administration of normal saline 1 L IV, Compazine 10 mg IV, Benadryl 25 mg IV, and dexamethasone 10 mg IV. Her symptoms completely resolved with the above treatment. She is being discharged with prescriptions for Zofran and for meclizine. I discussed with her and her male marker machine attendant the results of her workup, outpatient treatment and follow-up, as well as potentially worrisome signs or symptoms that should prompt reevaluation in the emergency department. Departure - Departure Disposition: 01 Home, Self Care Clinical Impression: Vertigo Headache Qualifiers: Headache type: unspecified Headache chronicity pattern: acute headache Intractability: not intractable Qualified Code(s): R51 - Headache Condition: Stable Instructions: ED Cephalgia Unspecified, ED Vertigo Unspecified Follow-Up: Kirsty Mckeon PA-C [Primary Care Provider] - Prescriptions: Meclizine HCl [Motion Sickness Relief] 25 mg PO TID PRN #20 tablet PRN Reason: Dizziness Ondansetron Odt [Zofran] 4 mg TL Q6H PRN #10 tablet PRN Reason: Nausea / Vomiting Comments: Drink plenty of fluids. You can use Phenergan or Zofran as prescribed if needed for nausea. You can use ibuprofen, up to 800 mg 3 times daily if needed for headache. You can use meclizine as prescribed if needed for dizziness. Follow-up with your primary physician within 1-2 weeks. Call to schedule an appointment. Return to the emergency department if you develop increasing headache, persistent vomiting, fever with shaking chills, or otherwise worsening symptoms. Forms: Activity restrictions Discharge Date/Time: 05/17/18 10:54
== END 2018-05-17 10:54 | disposition home or self-care (01) ==
LOC: ED 08:45
DX: R42 Dizziness and giddiness (principal); R51 Headache
CPT/HCPCS: 36415; 70450; 80053; 81001; 81025; 83690; 85025; 85651; 96374; 96375; 99283; 99284; J1200; 81003; 87086

== ENCOUNTER 2018-07-08 16:19 | Outpatient (CLI) | payer OTHER, BC ==
--- NOTE | 2018-07-09 12:06 | MRI Report ---
Reason: SHOULDER IMPINGMENT SYNDROME,RIGHT Procedure Date: 07/08/2018 Accession Number: [id number] / [id number] Procedure: MRI - Shoulder RT W/O CPT Code: FULL RESULT: EXAM: RIGHT SHOULDER MRI WITHOUT CONTRAST EXAM DATE: 07/08/2018 05:40 PM. CLINICAL HISTORY: Right shoulder pain. Limited range of motion. COMPARISON: None. TECHNIQUE: Multiplanar, multisequence T1-weighted and fluid-sensitive sequences of the shoulder without contrast. Other: None. FINDINGS: Acromioclavicular Region: The acromion is type II. Minimal subchondral edema at the distal clavicle. No marginal osteophyte formation. The coracoacromial and coracoclavicular ligaments are intact. No subacromial/subdeltoid bursal fluid. Glenohumeral Region: No subluxation. No effusion or loose bodies. The articular cartilage is unremarkable. The glenohumeral ligaments and joint capsule are unremarkable. Bone Marrow: No fracture, marrow edema or bone lesions. Labrum: The labrum is unremarkable on this nonarthrographic study. Musculature/Rotator Cuff: The subscapularis, supraspinatus, infraspinatus, and teres minor tendons are intact. No edema or fatty atrophy. Biceps Tendon: The long head of the biceps tendon and biceps skinny are intact. Other: The subcutaneous tissues are unremarkable. IMPRESSION: 1. Normal rotator cuff tendons. 2. Grossly normal labrum. 3. Normal biceps tendon. [facility] MUSCULOSKELETAL RADIOLOGY SECTION
== END 2018-07-08 16:20 | disposition home or self-care (01) ==
LOC: DI 16:19
PROVIDERS: ATTEND Physician Assistant Medical
DX: M75.41 Impingement syndrome of right shoulder (principal)

== ENCOUNTER 2020-10-01 16:53 | Outpatient (CLI) | payer BC ==
[2020-10-01 20:57] LABS: BASOPHILS # (AUTO) 0.1 10^3/uL (0.0-0.1); BASOPHILS % (AUTO) 1.1 %; EOSINOPHILS # (AUTO) 0.2 10^3/uL (0.0-0.7); HCT - HEMATOCRIT 42.2 % (37.0-47.0); HGB - HEMOGLOBIN 14.1 g/dL (12.0-16.0); LYMPHOCYTES # (AUTO) 2.3 10^3/uL (1.5-3.5); LYMPHOCYTES % (AUTO) 31.4 %; MEAN CORPUSCULAR HEMOGLOBIN 29.1 pg (27.0-31.0); MEAN CORPUSCULAR HGB CONC 33.4 g/dL (32.0-36.0); MEAN CORPUSCULAR VOLUME 87.2 fL (81.0-99.0); MEAN PLATELET VOLUME 9.1 fL (7.9-10.8); MONOCYTES # (AUTO) 0.4 10^3/uL (0.0-1.0); NEUTROPHILS # (AUTO) 4.3 10^3/uL (1.5-6.6); NEUTROPHILS % (AUTO) 58.2 %; PLT - PLATELET COUNT 354 10^3/uL (130-450); RED BLOOD COUNT 4.84 10^6/uL (4.20-5.40); WHITE BLOOD COUNT 7.4 x10^3/uL (4.8-10.8)
[2020-10-01 21:01] LABS: BILIRUBIN,URINE NEGATIVE (NEGATIVE); CLARITY,URINE CLOUDY (CLEAR); GLUCOSE, URINE (UA) NEGATIVE (NEGATIVE); KETONES,URINE (UA) NEGATIVE (NEGATIVE); LEUKOCYTE ESTERASE, URINE TRACE (NEGATIVE); NITRITE,URINE NEGATIVE (NEGATIVE); OCCULT BLOOD,URINE NEGATIVE (NEGATIVE); PROTEIN,URINE NEGATIVE (NEGATIVE); UROBILINOGEN,URINE 0.2 (NORMAL) E.U./dL (NORMAL)
[2020-10-01 21:07] LABS: AMORPHOUS SEDIMENT,UR Marked /LPF; BACTERIA,URINE Rare /HPF (None Seen); RBC,URINE 0-5 /HPF (0-5); SQUAMOUS EPITHELIAL CELL,UR MOD Squamous (<= Few); WBC,URINE 0-3 /HPF (0-5)
[2020-10-01 21:13] LABS: ALBUMIN 4.3 g/dL (3.2-5.5); ALBUMIN/GLOBULIN RATIO 1.3 (1.0-2.2); ALKALINE PHOSPHATASE 71 IU/L (42-121); ALT ALANINE AMINOTRANSFERASE 18 IU/L (10-60); AST ASPARTATE AMINOTRANSFERASE 23 IU/L (10-42); BILIRUBIN,TOTAL 0.7 mg/dL (0.2-1.0); BUN - BLOOD UREA NITROGEN 11 mg/dL (6-20); CALCIUM 9.1 mg/dL (8.5-10.3); CARBON DIOXIDE - CO2 25 mmol/L (21-32); CHLORIDE 102 mmol/L (101-111); CHOL/HDL RATIO 3.1 (<4.4); CHOLESTEROL 236 mg/dL; CREATININE 0.6 mg/dL (0.4-1.0); GFR - MDRD 117 (>89); GLUCOSE 101 mg/dL (70-100); HDL CHOLESTEROL 77 mg/dL; LDL CHOLESTEROL,CALCULATED 123 mg/dL; LDL/HDL RATIO 1.6 (<4.4); POTASSIUM 3.9 mmol/L (3.5-5.0); SODIUM 136 mmol/L (135-145); TOTAL PROTEIN 7.7 g/dL (6.7-8.2); TRIGLYCERIDES 181 mg/dL; VLDL CHOLESTEROL 36 mg/dL
[2020-10-01 21:24] LABS: THYROID STIMULATING HORMONE 1.35 uIU/mL (0.34-5.60)
== END 2020-10-01 16:54 | disposition home or self-care (01) ==
LOC: LAB.N 16:53
PROVIDERS: ATTEND Physician Assistant Medical
DX: Z00.00 Encounter for general adult medical examination without abnormal findings (principal); R10.2 Pelvic and perineal pain
CPT/HCPCS: 36415; 80053; 80061; 81001; 83721; 84443; 85025; 87086

== ENCOUNTER 2020-10-09 03:23 | Emergency (ER) | payer BC ==
--- NOTE | 2020-10-09 04:50 | ED Physician Documentation ---
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 No: Fever, Vomiting, Diarrhea, Constipation - Additional information Additional information: sudden onset RLQ/right pelvic pain 1-2 hours ago while at work (in [facility]). pain is worse with palpation, movement. Review of Systems Constitutional: denies: Fever, Chills, Sweats Cardiac: reports: Reviewed and negative Respiratory: reports: Reviewed and negative GI: reports: Abdominal Pain, Nausea, Vomiting. 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 : None HEENT: None Psych: Anxiety Musculoskeletal: Osteoarthritis Derm: None - Past Surgical History Past Surgical History: Yes /DISPATCHER SERVICE CHIEF: Other - Present Medications Home Medications: Ambulatory Orders Medication Instructions Recorded Confirmed norgestrel-ethinyl estradioL 1 tab PO DAILY tablet 06/04/16 05/17/18 [Ogestrel] Promethazine [Phenergan] 1 tab ORAL Q6HR 06/06/16 05/17/18 Escitalopram [Lexapro] 10 mg PO DAILY 05/17/18 05/17/18 Meclizine HCl [Motion Sickness 25 mg PO TID PRN #20 tablet 05/17/18 Relief] Ondansetron Odt [Zofran] 4 mg TL Q6H PRN #10 tablet 05/17/18 oxyCODONE [Roxicodone] 5 - 10 mg PO Q6H PRN #14 tablet 10/09/20 - Allergies Allergies/Adverse Reactions: Allergies Allergy/AdvReac Type Severity Reaction Status Date / Time No Known Drug Allergies Allergy Verified 10/09/20 03:25 - Social History Does the pt smoke?: No Smoking Status: Never smoker Does the pt drink ETOH?: No Does the pt have substance abuse?: No - Immunizations Immunizations are current?: Yes - POLST Patient has POLST: No PD ED PE NORMAL - Vitals Vital signs reviewed: Yes - General General: Alert and oriented X 3, No acute distress, Well developed/nourished - Cardiac Cardiac: RRR, No murmur - Respiratory Respiratory: No respiratory distress, Clear bilaterally - Abdomen Abdomen: Soft, Non tender, Non distended - Back Back: No CVA TTP Results - Vitals Vitals: Oxygen O2 Source Room air - Labs Labs: Laboratory Tests 10/09/20 10/09/20 10/09/20 05:07 05:07 06:29 WBC 8.3 RBC 4.80 Hgb 13.9 Hct 42.9 MCV 89.4 MCH 29.0 MCHC 32.4 RDW 13.0 Plt Count 316 MPV 8.9 Neut # (Auto) 4.8 Lymph # (Auto) 2.4 [place] # (Auto) 0.7 Eos # (Auto) 0.3 Baso # (Auto) 0.1 Absolute Nucleated RBC 0.00 Nucleated RBC % 0.0 Sodium 137 Potassium 3.6 Chloride 100 L Carbon Dioxide 26 Anion Gap 11.0 BUN 12 Creatinine 0.6 Estimated GFR (MDRD) 117 Glucose 129 H Calcium 9.5 Total Bilirubin 0.4 AST 22 ALT 19 Alkaline Phosphatase 68 Total Protein 7.8 Albumin 4.4 Globulin 3.4 Albumin/Globulin Ratio 1.3 Lipase 38 Urine Color YELLOW Urine Clarity CLEAR Urine pH 7.0 Ur Specific [place] 1.020 Urine Protein NEGATIVE Urine Glucose (UA) NEGATIVE Urine Ketones NEGATIVE Urine Occult Blood NEGATIVE Urine Nitrite NEGATIVE Urine Bilirubin NEGATIVE Urine Urobilinogen 0.2 (NORMAL) Ur Leukocyte Esterase TRACE H Urine RBC 0-5 Urine WBC 0-3 Ur Squamous Epith Cells MOD Squamous H Urine Bacteria Rare Urine Mucus Few Strands Ur Microscopic Review INDICATED Urine Culture Comments NOT INDICATED Urine HCG, Qual NEGATIVE - Rads (name of study) pelvic/TV US with color flow doppler Radiology: Prelim report reviewed, See rad report PD MEDICAL DECISION MAKING - ED course Complexity details: reviewed results, re-evaluated patient, considered differential, d/w patient Departure - Departure Disposition: 01 Home, Self Care Clinical Impression: Pelvic pain Condition: Good Instructions: ED Pelvic Pain [facility] Follow-Up: Kirsty Mckeon PA-C [Primary Care Provider] - Prescriptions: oxyCODONE [Roxicodone] 5 - 10 mg PO Q6H PRN #14 tablet PRN Reason: Pain Forms: Activity restrictions Discharge Date/Time: 10/09/20 08:23
[2020-10-09 05:12] LABS: BASOPHILS # (AUTO) 0.1 10^3/uL (0.0-0.1); BASOPHILS % (AUTO) 0.7 %; EOSINOPHILS # (AUTO) 0.3 10^3/uL (0.0-0.7); EOSINOPHILS % (AUTO) 3.7 %; HCT - HEMATOCRIT 42.9 % (37.0-47.0); HGB - HEMOGLOBIN 13.9 g/dL (12.0-16.0); LYMPHOCYTES # (AUTO) 2.4 10^3/uL (1.5-3.5); LYMPHOCYTES % (AUTO) 29.2 %; MEAN CORPUSCULAR HGB CONC 32.4 g/dL (32.0-36.0); MEAN CORPUSCULAR VOLUME 89.4 fL (81.0-99.0); MEAN PLATELET VOLUME 8.9 fL (7.9-10.8); MONOCYTES # (AUTO) 0.7 10^3/uL (0.0-1.0); MONOCYTES % (AUTO) 7.8 %; NEUTROPHILS # (AUTO) 4.8 10^3/uL (1.5-6.6); NEUTROPHILS % (AUTO) 58.4 %; PLT - PLATELET COUNT 316 10^3/uL (130-450); WHITE BLOOD COUNT 8.3 x10^3/uL (4.8-10.8)
[2020-10-09 05:23] LABS: ALBUMIN 4.4 g/dL (3.2-5.5); ALBUMIN/GLOBULIN RATIO 1.3 (1.0-2.2); BILIRUBIN,TOTAL 0.4 mg/dL (0.2-1.0); CALCIUM 9.5 mg/dL (8.5-10.3); CREATININE 0.6 mg/dL (0.4-1.0); POTASSIUM 3.6 mmol/L (3.5-5.0); TOTAL PROTEIN 7.8 g/dL (6.7-8.2)
[2020-10-09] MEDS ORDERED: ONDANSETRON 4 MG/2 ML VIAL IVP STA (05:30)
[2020-10-09] MEDS ORDERED: HYDROmorphone 1 MG/ML CARPUJECT IVP STA ×2 (05:30→07:27)
[2020-10-09] MEDS ORDERED: PROMETHAZINE INJ 25 MG in SODIUM CHLORIDE 0.9% 50 ML IV STA (06:32)
[2020-10-09 06:39] LABS: BILIRUBIN,URINE NEGATIVE (NEGATIVE); GLUCOSE, URINE (UA) NEGATIVE (NEGATIVE); KETONES,URINE (UA) NEGATIVE (NEGATIVE); LEUKOCYTE ESTERASE, URINE TRACE (NEGATIVE); NITRITE,URINE NEGATIVE (NEGATIVE); OCCULT BLOOD,URINE NEGATIVE (NEGATIVE); PROTEIN,URINE NEGATIVE (NEGATIVE); UROBILINOGEN,URINE 0.2 (NORMAL) E.U./dL (NORMAL)
[2020-10-09] MEDS ORDERED: PROMETHAZINE 25 MG/1 ML VIAL ONE (06:40)
[2020-10-09 06:42] LABS: CLARITY,URINE CLEAR (CLEAR); HCG UR QUAL NEGATIVE
[2020-10-09 06:50] LABS: BACTERIA,URINE Rare /HPF (None Seen); MUCUS,URINE Few Strands; RBC,URINE 0-5 /HPF (0-5); SQUAMOUS EPITHELIAL CELL,UR MOD Squamous (<= Few); WBC,URINE 0-3 /HPF (0-5)
[2020-10-09 07:48] VITALS: BP 146/96
--- NOTE | 2020-10-09 08:13 | Ultrasound Report ---
PROCEDURE: Pelvic w/Transvag+Doppler Comp INDICATIONS: pelvic pain, R TECHNIQUE: Real-time scanning was performed of the pelvic organs, with image documentation. Additional endovagi nal scanning was necessary due to incomplete visualization of the adnexal and endometrial structures by transabdominal scanning. COMPARISON: 06/03/2016, 05/23/2016. Correlation is also made with prior abdomen pelvis CT, 09/26/2017 FINDINGS: No pathologic free abdominal or pelvic fluid. Uterus: Uterus is normal in size at 8.2 x 2.8 x 3.5 cm. The endometrium measures 2 mm in combined t hickness. Ovaries: The right ovary measures 3.1 x 1.3 x 2.6 cm and the left ovary measures 1.6 x 2.3 x 1.8 cm. No significant ovarian abnormalities are seen. There are less than 12 follicles seen on each side. No adnexal masses are seen. Normal-appearing arterial waveforms are confirmed to each ovary. IMPRESSION: Normal pelvic ultrasound, without an imaging explanation found for the patient's presenting history. Note: Concordant preliminary findings given by the property field inspector upon the completion of the examination to Dr. Alcaraz at 7:15 AM on 10/09/2020. Reviewed by: Reece Burroughs MD on 10/09/2020 7:11 AM VIKI Approved by: Reece Burroughs MD on 10/09/2020 7:11 AM VIKI Station ID: [id number]
== END 2020-10-09 08:23 | disposition home or self-care (01) ==
LOC: ED 03:23
DX: R10.2 Pelvic and perineal pain (principal)
CPT/HCPCS: 36415; 76830; 76856; 80053; 81001; 81025; 83690; 85025; 93975; 96365; 96375; 96376; 99284; J1170; J7040; 81003; 87086

== ENCOUNTER 2020-10-12 12:13 | Outpatient (CLI) | payer BC ==
[2020-10-12] MEDS ORDERED: IOVERSOL 320 50 ML VIAL ONE (12:28)
[2020-10-12] MEDS ORDERED: IOVERSOL 320 100 ML VIAL IVP ONE ×2 (12:28→13:37)
[2020-10-12] MEDS ORDERED: IOPAMIDOL-300 50 ML VIAL PO ONE (13:37)
--- NOTE | 2020-10-12 13:59 | CT Report ---
PROCEDURE: Abdomen/Pelvis W INDICATIONS: Right lower quadrant abdominal pain CONTRAST: IV CONTRAST: Optiray 320 ml: 100 PO CONTRAST: Isovue 300 ml50 TECHNIQUE: After the administration of intravenous contrast, 5 mm thick sections acquired from the diaphragms to the symphysis. 5 mm thick coronal and sagittal reformats were acquired. For radiation dose reducti on, the following was used: automated exposure control, adjustment of mA and/or kV according to maxine ent size. COMPARISON: None. FINDINGS: Image quality: Excellent. ABDOMEN: Lung bases: Lung bases are clear. Heart size is normal. Solid organs: Liver and spleen are normal in size and enhancement. Gallbladder is normal. Biliary system is non dilated. Pancreas enhances normally. No adrenal nodules. Kidneys demonstrate normal size and enhancement, without hydronephrosis. Peritoneum and bowel: Normal nondilated appendix containing air with no wall thickening or periappend iceal inflammatory change. Bowel loops demonstrate normal wall thickness and caliber. No free fluid or air. Nodes and vessels: No retroperitoneal or mesenteric adenopathy by size criteria. Aorta and inferior vena cava are normal in size. Miscellaneous: No ventral hernias. PELVIS: Genitourinary: Bladder wall thickness is normal. Miscellaneous: No inguinal hernias or adenopathy. Bones: No suspicious bony lesions. No vertebral body compression fractures. IMPRESSION: No appendicitis or other acute finding. No abnormality to explain patient's right lower quadrant pain . Kirsty Mckeon PA-C could not be reached at [phone] or [phone] to discuss results. Reviewed by: Joel Blandon MD on 10/12/2020 1:58 PM PDT Approved by: Joel Blandon MD on 10/12/2020 1:58 PM PDT Station ID: [id number]
== END 2020-10-12 12:14 | disposition home or self-care (01) ==
LOC: DI 12:13
PROVIDERS: ATTEND Physician Assistant Medical
DX: R10.31 Right lower quadrant pain (principal)
CPT/HCPCS: 74177; Q9967

== ENCOUNTER 2020-12-05 00:33 | Emergency (ER) | payer BC ==
[2020-12-05 02:31] LABS: HCG UR QUAL NEGATIVE
[2020-12-05 02:32] LABS: BACTERIA,URINE Rare /HPF (None Seen); BILIRUBIN,URINE NEGATIVE (NEGATIVE); CLARITY,URINE CLEAR (CLEAR); GLUCOSE, URINE (UA) NEGATIVE (NEGATIVE); KETONES,URINE (UA) NEGATIVE (NEGATIVE); LEUKOCYTE ESTERASE, URINE TRACE (NEGATIVE); NITRITE,URINE NEGATIVE (NEGATIVE); OCCULT BLOOD,URINE NEGATIVE (NEGATIVE); PH,URINE 6.5 PH (5.0-7.5); PROTEIN,URINE NEGATIVE (NEGATIVE); RBC,URINE 0-5 /HPF (0-5); SQUAMOUS EPITHELIAL CELL,UR MANY Squamous (<= Few); UROBILINOGEN,URINE 0.2 (NORMAL) E.U./dL (NORMAL); WBC,URINE 0-3 /HPF (0-5)
[2020-12-05] MEDS ORDERED: SODIUM CHLORIDE 0.9% 1,000 ML IV STA (02:37)
[2020-12-05 02:56] LABS: BASOPHILS # (AUTO) 0.1 10^3/uL (0.0-0.1); BASOPHILS % (AUTO) 0.8 %; EOSINOPHILS # (AUTO) 0.1 10^3/uL (0.0-0.7); EOSINOPHILS % (AUTO) 1.4 %; HCT - HEMATOCRIT 43.8 % (37.0-47.0); HGB - HEMOGLOBIN 14.5 g/dL (12.0-16.0); LYMPHOCYTES # (AUTO) 2.1 10^3/uL (1.5-3.5); LYMPHOCYTES % (AUTO) 31.7 %; MEAN CORPUSCULAR HEMOGLOBIN 29.2 pg (27.0-31.0); MEAN CORPUSCULAR HGB CONC 33.1 g/dL (32.0-36.0); MEAN CORPUSCULAR VOLUME 88.3 fL (81.0-99.0); MEAN PLATELET VOLUME 8.8 fL (7.9-10.8); MONOCYTES # (AUTO) 0.4 10^3/uL (0.0-1.0); MONOCYTES % (AUTO) 6.8 %; NEUTROPHILS # (AUTO) 3.8 10^3/uL (1.5-6.6); PLT - PLATELET COUNT 317 10^3/uL (130-450); RED BLOOD COUNT 4.96 10^6/uL (4.20-5.40); RED CELL DISTRIBUTION WIDTH 12.4 % (12.0-15.0); WHITE BLOOD COUNT 6.5 x10^3/uL (4.8-10.8)
[2020-12-05 03:08] LABS: ALBUMIN 4.7 g/dL (3.2-5.5); ALBUMIN/GLOBULIN RATIO 1.2 (1.0-2.2); BILIRUBIN,TOTAL 0.6 mg/dL (0.2-1.0); CREATININE 0.6 mg/dL (0.4-1.0); POTASSIUM 4.3 mmol/L (3.5-5.0); TOTAL PROTEIN 8.6 g/dL (6.7-8.2)
[2020-12-05] MEDS ORDERED: ONDANSETRON ODT 4 MG TABLET TL STA (03:23)
[2020-12-05 04:24] VITALS: BP 128/88
--- NOTE | 2020-12-06 02:21 | ED Physician Documentation ---
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 She had similar episode 2 days ago as well that spontaneously resolved. 3 days ago, patient was seen in outpatient setting by livestock slaughterer for evaluation of ongoing right pelvic pain (she had been evaluated in this ED for this pain 10/09/20, no diagnosis was achieved based on testing at that time; she followed up with livestock slaughterer [address] and had [address] A/P which also did not reveal an etiology for her RLQ/right pelvic pain). She saw a new livestock slaughterer three days ago and patient says findings on pelvic exam and some testing performed from specimen obtained during the pelvic exam resulted in her being given rocephin IM and prescriptions for doxycycline, flagyl, and diflucan. Patient says STD was not the suspected diagnosis but she is not sure what the antibiotics/antifungal medications were for. Review of Systems Constitutional: reports: Fatigue. denies: Fever, Myalgias Eyes: reports: Decreased vision (bilateral dimming of peripheral vision, res olved) Ears: reports: Tinnitus/ringing (resolved) Nose: denies: Congestion Cardiac: reports: Reviewed and negative Respiratory: reports: Reviewed and negative GI: reports: Nausea, Vomiting. denies: Abdominal Pain : denies: Dysuria, Frequency, Now EGA Neurologic: reports: Generalized weakness (resolved), Near syncope, Headache (mild, generalized). 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 : None HEENT: None Psych: Anxiety Musculoskeletal: Osteoarthritis Derm: None - Past Surgical History Past Surgical History: Yes /NUT STEAMER: Other - Present Medications Home Medications: Ambulatory Orders Medication Instructions Recorded Confirmed norgestrel-ethinyl estradioL 1 tab PO DAILY tablet 06/04/16 12/05/20 [Ogestrel] Escitalopram [Lexapro] 10 mg PO DAILY 05/17/18 12/05/20 Doxycycline Hyclate 100 mg PO DAILY 12/05/20 12/05/20 Fluconazole [Diflucan] 1 tab PO DAILY 12/05/20 12/05/20 cefTRIAXone [Rocephin 500MG] 500 mg PO DAILY 12/05/20 12/05/20 metroNIDAZOLE [Flagyl] 250 mg PO ONCE 12/05/20 12/05/20 - Allergies Allergies/Adverse Reactions: Allergies Allergy/AdvReac Type Severity Reaction Status Date / Time No Known Drug Allergies Allergy Verified 12/05/20 00:45 - Social History Does the pt smoke?: No Smoking Status: Never smoker Does the pt drink ETOH?: No Does the pt have substance abuse?: No - Immunizations Immunizations are current?: Yes - POLST Patient has POLST: No PD ED PE NORMAL - Vitals Vital signs reviewed: Yes - General General: Alert and oriented X 3, No acute distress, Well developed/nourished - HEENT HEENT: Moist mucous membranes - Neck Neck: Supple, no meningeal sign - Cardiac Cardiac: RRR, No murmur, No gallop, No rub - Respiratory Respiratory: No respiratory distress, Clear bilaterally - Abdomen Abdomen: Soft, Non tender - Extremities Extremities: No edema - Neuro Neuro: Alert and oriented X 3, No motor deficit, No sensory deficit, Normal speech Results - Vitals Vitals: Vital Signs - 24 hr 12/05/20 04:00 Temperature 36.5 C Heart Rate 72 Respiratory 16 Rate Blood Pressure 128/88 H O2 Saturation 100 Oxygen O2 Source Room air - EKG (time done) No standard instances Rate: Rate (enter#) (77) Rhythm: NSR [place]: Normal Intervals: Normal [place] QRS: Normal Ischemia: Normal ST segments - Labs Labs: Laboratory Tests 12/05/20 12/05/20 12/05/20 01:02 01:18 01:18 WBC RBC Hgb Hct MCV MCH MCHC RDW Plt Count MPV Neut # (Auto) Lymph # (Auto) [place] # (Auto) Eos # (Auto) Baso # (Auto) Absolute Nucleated RBC Nucleated RBC % Sodium Potassium Chloride Carbon Dioxide Anion Gap BUN Creatinine Estimated GFR (MDRD) Glucose POC Whole Bld Glucose 93 Calcium Total Bilirubin AST ALT Alkaline Phosphatase Total Protein Albumin Globulin Albumin/Globulin Ratio Lipase Urine Color YELLOW Urine Clarity CLEAR Urine pH 6.5 Ur Specific [place] 1.020 Urine Protein NEGATIVE Urine Glucose (UA) NEGATIVE Urine Ketones NEGATIVE Urine Occult Blood NEGATIVE Urine Nitrite NEGATIVE Urine Bilirubin NEGATIVE Urine Urobilinogen 0.2 (NORMAL) Ur Leukocyte Esterase TRACE H Urine RBC 0-5 Urine WBC 0-3 Ur Squamous Epith Cells MANY Squamous H Urine Bacteria Rare Ur Microscopic Review INDICATED Urine Culture Comments NOT INDICATED Urine HCG, Qual NEGATIVE 12/05/20 12/05/20 02:50 02:50 WBC 6.5 RBC 4.96 Hgb 14.5 Hct 43.8 MCV 88.3 MCH 29.2 MCHC 33.1 RDW 12.4 Plt Count 317 MPV 8.8 Neut # (Auto) 3.8 Lymph # (Auto) 2.1 [place] # (Auto) 0.4 Eos # (Auto) 0.1 Baso # (Auto) 0.1 Absolute Nucleated RBC 0.00 Nucleated RBC % 0.0 Sodium 137 Potassium 4.3 Chloride 99 L Carbon Dioxide 24 Anion Gap 14.0 H BUN 11 Creatinine 0.6 Estimated GFR (MDRD) 117 Glucose 95 POC Whole Bld Glucose Calcium 10.0 Total Bilirubin 0.6 AST 21 ALT 22 Alkaline Phosphatase 71 Total Protein 8.6 H Albumin 4.7 Globulin 3.9 Albumin/Globulin Ratio 1.2 Lipase 31 Urine Color Urine Clarity Urine pH Ur Specific [place] Urine Protein Urine Glucose (UA) Urine Ketones Urine Occult Blood Urine Nitrite Urine Bilirubin Urine Urobilinogen Ur Leukocyte Esterase Urine RBC Urine WBC Ur Squamous Epith Cells Urine Bacteria Ur Microscopic Review Urine Culture Comments Urine HCG, Qual PD MEDICAL DECISION MAKING - ED course Complexity details: reviewed old records, reviewed results, re-evaluated patient, considered differential, d/w patient ED course: presents to ED after 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 She had nausea and vomiting although she was able to tolerate fluids PO during ED stay; initially plan was to give IV NS but IV infiltrated and patient stated preference to rehydrate orally rather than restart an IV. She has some nausea during ED stay which improved with TL zofran. Her tests tonight have no notable/concerning abnormalities (CBC, ER abdominal panel, UA, EKG). She is normotensive during ED stay with normal heart rate and rhythm. The cause of her near-syncope is unclear at this time. Results reviewed with patient, advised to return if worse, follow up with her primary care provider next available appointment. Also advised to contact her prescribing livestock slaughterer to discuss whether the recently prescribed antibiotic regimen might be contributing to symptoms. Departure - Departure Disposition: 01 Home, Self Care Clinical Impression: Near syncope Condition: Good Instructions: ED Near Syncope Unkn Follow-Up: Kirsty Mckeon PA-C [Primary Care Provider] - Comments: Follow up with the practitioner who prescribed the antibitiocs Discharge Date/Time: 12/05/20 04:23
== END 2020-12-05 04:23 | disposition home or self-care (01) ==
LOC: ED 00:33
DX: R55 Syncope and collapse (principal); R11.2 Nausea with vomiting, unspecified
CPT/HCPCS: 36415; 80053; 81001; 81025; 83690; 85025; 93005; 99283; 99284; Q0162; 81003; 87086

== ENCOUNTER 2022-08-10 08:00 | Outpatient (CLI) | payer BC ==
[2022-08-10 04:55] LABS: BASOPHILS # (AUTO) 0.1 10^3/uL (0.0-0.1); BASOPHILS % (AUTO) 0.7 %; EOSINOPHILS # (AUTO) 0.3 10^3/uL (0.0-0.7); EOSINOPHILS % (AUTO) 2.4 %; HCT - HEMATOCRIT 39.9 % (37.0-47.0); LYMPHOCYTES # (AUTO) 2.9 10^3/uL (1.5-3.5); LYMPHOCYTES % (AUTO) 26.6 %; MEAN CORPUSCULAR HEMOGLOBIN 28.3 pg (27.0-31.0); MEAN CORPUSCULAR HGB CONC 32.6 g/dL (32.0-36.0); MEAN CORPUSCULAR VOLUME 86.7 fL (81.0-99.0); MONOCYTES # (AUTO) 0.8 10^3/uL (0.0-1.0); MONOCYTES % (AUTO) 7.6 %; NEUTROPHILS # (AUTO) 6.8 10^3/uL (1.5-6.6); NEUTROPHILS % (AUTO) 62.3 %; PLT - PLATELET COUNT 322 10^3/uL (130-450); RED CELL DISTRIBUTION WIDTH 13.1 % (12.0-15.0); WHITE BLOOD COUNT 10.9 x10^3/uL (4.8-10.8)
[2022-08-10 05:14] LABS: ALBUMIN 4.2 g/dL (3.2-5.5); ALBUMIN/GLOBULIN RATIO 1.2 (1.0-2.2); ALKALINE PHOSPHATASE 66 IU/L (42-121); ALT ALANINE AMINOTRANSFERASE 25 IU/L (10-60); AST ASPARTATE AMINOTRANSFERASE 32 IU/L (10-42); BILIRUBIN,TOTAL 0.3 mg/dL (0.2-1.0); BUN - BLOOD UREA NITROGEN 15 mg/dL (6-20); CALCIUM 9.3 mg/dL (8.5-10.3); CARBON DIOXIDE - CO2 25 mmol/L (21-32); CHLORIDE 103 mmol/L (101-111); CHOLESTEROL 225 mg/dL; CREATININE 0.6 mg/dL (0.4-1.0); GFR - MDRD 115 (>89); GLUCOSE 111 mg/dL (70-100); HDL CHOLESTEROL 75 mg/dL; LDL CHOLESTEROL,CALCULATED 115 mg/dL; LDL/HDL RATIO 1.5 (<4.4); POTASSIUM 3.7 mmol/L (3.5-5.0); SODIUM 139 mmol/L (135-145); TOTAL PROTEIN 7.8 g/dL (6.7-8.2); TRIGLYCERIDES 173 mg/dL; VLDL CHOLESTEROL 35 mg/dL
[2022-08-10 05:25] LABS: THYROID STIMULATING HORMONE 3.44 uIU/mL (0.34-5.60)
== END 2022-08-10 23:59 | disposition home or self-care (01) ==
LOC: LAB 08:00
PROVIDERS: ATTEND Physician Assistant Medical
DX: Z00.00 Encounter for general adult medical examination without abnormal findings (principal)
CPT/HCPCS: 36415; 80053; 80061; 83721; 84443; 85025

== ENCOUNTER 2023-09-17 05:20 | Emergency (ER) | payer BC ==
[2023-09-17] MEDS: ONDANSETRON 4 MG/2 ML VIAL IVP STA ×2 (06:02→08:07)
[2023-09-17 06:17] LABS: BASOPHILS # (AUTO) 0.1 10^3/uL (0.0-0.1); BASOPHILS % (AUTO) 0.3 %; EOSINOPHILS # (AUTO) 0.1 10^3/uL (0.0-0.7); EOSINOPHILS % (AUTO) 0.3 %; HCT - HEMATOCRIT 47.3 % (37.0-47.0); HGB - HEMOGLOBIN 14.9 g/dL (12.0-16.0); LYMPHOCYTES # (AUTO) 0.9 10^3/uL (1.5-3.5); LYMPHOCYTES % (AUTO) 5.3 %; MEAN CORPUSCULAR HEMOGLOBIN 27.9 pg (27.0-31.0); MEAN CORPUSCULAR HGB CONC 31.5 g/dL (32.0-36.0); MEAN CORPUSCULAR VOLUME 88.4 fL (81.0-99.0); MONOCYTES # (AUTO) 0.8 10^3/uL (0.0-1.0); MONOCYTES % (AUTO) 4.5 %; NEUTROPHILS # (AUTO) 15.8 10^3/uL (1.5-6.6); NEUTROPHILS % (AUTO) 89.1 %; PLT - PLATELET COUNT 363 10^3/uL (130-450); RED BLOOD COUNT 5.35 10^6/uL (4.20-5.40); RED CELL DISTRIBUTION WIDTH 13.1 % (12.0-15.0); WHITE BLOOD COUNT 17.7 x10^3/uL (4.8-10.8)
[2023-09-17] MEDS: MORPHINE 2 MG/ML CARPUJECT IVP STA ×2 (06:26→08:07)
[2023-09-17] MEDS ORDERED: iohexoL-300 100 ML VIAL ONE (06:29)
--- NOTE | 2023-09-17 06:29 | ED Physician Documentation ---
History of Present Illness - Stated complaint Stated Complaint: ABD PX/FEELING FAINT - Chief complaint Chief Complaint: Abd Pain - Additonal information Additional information: 33-year-old female presents to the emergency department chief complaint abdominal pain. Epigastric abdominal pain with associated nausea vomiting that began earlier today. Reports nausea was so severe that she was feeling faint and had multiple episodes of nonbloody none bilious vomiting. Denies similar pain in the past. Reports history of 1 surgical procedure, repair of a hemorrhagic ovarian cyst on the right side. Denies fever, travel, new or unusual foods, regular use nonsteroidal anti- inflammatory medications, alcohol or other illicit substances. 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 : None HEENT: None Psych: Anxiety Musculoskeletal: Osteoarthritis Derm: None - Past Surgical History Past Surgical History: Yes /VISOR INSTALLER: Other - Present Medications Home Medications: Ambulatory Orders Medication Instructions Recorded Confirmed Drospirenone [Slynd] See Rx Instructions .ROUTE .COMPLEX 09/17/23 09/17/23 buPROPion [Wellbutrin Xl] 150 mg PO DAILY 09/17/23 09/17/23 - Allergies Allergies/Adverse Reactions: Allergies Allergy/AdvReac Type Severity Reaction Status Date / Time No Known Drug Allergies Allergy Verified 09/17/23 05:34 - Social History Does the pt smoke?: No Smoking Status: Never smoker Does the pt drink ETOH?: No Does the pt have substance abuse?: No - Immunizations Immunizations are current?: Yes - POLST Patient has POLST: No PD ED PE NORMAL - General General: Alert and oriented X 3, Other - HEENT HEENT: Atraumatic, PERRL, EOMI, Ears normal, Moist mucous membranes, Pharynx benign - Neck Neck: Supple, no meningeal sign, No bony TTP, No adenopathy, Thyroid normal - Cardiac Cardiac: RRR, No murmur, No gallop, No rub - Respiratory Respiratory: No respiratory distress, Clear bilaterally - Abdomen Abdomen: No: Non tender (Epigastric tenderness to palpation.) - Female Female : Deferred - Rectal Rectal: Deferred - Back Back: No CVA TTP, No spinal TTP - Derm Derm: Normal color - Extremities Extremities: No deformity - Neuro Neuro: Alert and oriented X 3, retail client solutions analyst 2-12 intact, No motor deficit, No sensory deficit, Normal speech Results - Vitals Vitals: Vital Signs - 24 hr 09/17/23 05:34 Temperature 36.3 C L Heart Rate 97 Respiratory 16 Rate Blood Pressure 116/85 H O2 Saturation 98 Oxygen O2 Source Room air - Labs Labs: Laboratory Tests 09/17/23 05:49 WBC 17.7 H RBC 5.35 Hgb 14.9 Hct 47.3 H MCV 88.4 MCH 27.9 MCHC 31.5 L RDW 13.1 Plt Count 363 MPV 9.0 Neut # (Auto) 15.8 H Lymph # (Auto) 0.9 L [place] # (Auto) 0.8 Eos # (Auto) 0.1 Baso # (Auto) 0.1 Absolute Nucleated RBC 0.00 Nucleated RBC % 0.0 PD Medical Decision Making - ED course Complexity details: considered differential ED course: 33-year-old female with past medical significant for hemorrhagic cyst of ovary presents with epigastric abdominal pain. Initial differential diagnosis included but not limited to gastritis, viral gastroenteritis, pancreatitis. I have initiated workup here in the emergency department with labs and imaging. Will be signing out to the oncoming physician, please see their documentation for further detail. Departure - Departure
[2023-09-17 06:34] LABS: ALBUMIN 4.5 g/dL (3.2-5.5); ALBUMIN/GLOBULIN RATIO 1.4 (1.0-2.2); BILIRUBIN,TOTAL 0.3 mg/dL (0.2-1.0); CALCIUM 9.6 mg/dL (8.5-10.3); CREATININE 0.9 mg/dL (0.6-1.3); TOTAL PROTEIN 7.8 g/dL (6.4-8.9)
[2023-09-17 07:01] LABS: B. PARAPERTUSSIS- RESP PCR PAN NOT DETECTED; B. PERTUSSIS- RESP PCR PANEL NOT DETECTED; C. PNEUMONIAE- RESP PCR PANEL NOT DETECTED; CORONAVIRUS 229E-RESP PCR NOT DETECTED; CORONAVIRUS HKU1-RESP PCR NOT DETECTED; CORONAVIRUS NL63-RESP PCR NOT DETECTED; CORONAVIRUS OC43-RESP PCR NOT DETECTED; HUMAN METAPNEUMOVIRUS NOT DETECTED; INFLUENZA A- RESP PCR PANEL NOT DETECTED; INFLUENZA B - RESP PCR PANEL NOT DETECTED; M. PNEUMONIAE- RESP PCR PANEL NOT DETECTED; PARAINFLUENZA VIRUS 1 NOT DETECTED; PARAINFLUENZA VIRUS 2 NOT DETECTED; PARAINFLUENZA VIRUS 3 NOT DETECTED; PARAINFLUENZA VIRUS 4 NOT DETECTED; RHINOVIRUS/ENTEROVIRUS NOT DETECTED; RSV- RESP PCR PANEL NOT DETECTED; SARS-CoV-2 -RESP PCR PANEL NOT DETECTED
[2023-09-17] MEDS: iohexoL-300 100 ML VIAL IVP ONE (07:05)
[2023-09-17] MEDS: SODIUM CHLORIDE 0.9% 1,000 ML IV STA (08:01)
--- NOTE | 2023-09-17 08:19 | CT Report ---
PROCEDURE: Abdomen/Pelvis W INDICATIONS: Epigastric abd pain CONTRAST: 100 ML OMNI 300 TECHNIQUE: After the administration of intravenous contrast, a CT scan of the abdomen and pelvis was performed. Images were recorded and evaluated at appropriate window settings. Reformats: coronal and sagittal. F or radiation dose reduction, the following was used: automated exposure control, adjustment of mA and /or kV according to patient size. COMPARISON: None. FINDINGS: Image quality: Diagnostic. Lower chest: Unremarkable. Liver: No solid mass. Gallbladder: No radiopaque stones or wall thickening. Biliary tree: No intrahepatic or extrahepatic dilation, accounting for age. Spleen: No splenomegaly. Pancreas: No pancreatic ductal dilation. Adrenals: No adrenal nodule. Kidneys and ureters: No hydronephrosis. No renal cystic lesion which requires follow up. No solid mas s. Stomach, bowel and peritoneum: No gastric or small bowel dilation. No abnormal wall thickening. No pa thologic free fluid. Lymph nodes: No central or retroperitoneal adenopathy. Vessels: No infrarenal aortic aneurysm. Patent portal vein. Note is made of a dilated left canal vein with prolonged reflux characterized 2 left paraovarian varicosities. These are prominent. A dilated contrast-filled branch of the left internal iliac vein draining the varicosities is also noted. There is narrowing of the left renal vein as it crosses between the SMA and the aorta. There is a prominen t paravertebral collateral drainage pathway off the left renal vein seen on image 44 through 46 of ax ial series 2.. PELVIS Reproductive organs: Unremarkable. Bladder: No abnormal wall thickening, accounting for underdistention. Pelvic lymph nodes: No pelvic adenopathy by size criteria. Bones: No aggressive osseous abnormality. Other: No significant ventral or inguinal hernia. IMPRESSION: 1. No acute abdominal process is noted. No findings which explain epigastric abdominal pain. 2. 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 In a subset of patients, this can cor relate with a clinical syndrome of chronic pelvic venous congestion. Most patients do not have sympto ms. 3. There is drainage from the left paraovarian varicosities into the internal iliac on the left, felt to most likely represent normal drainage and is not a AVM. 4. Narrowing of the left renal vein as it crosses between the SMA and the aorta with a prominent torrey ateral drainage pathway present. In a small subset of patients, this can correlate with the clinical syndrome of Nutcracker syndrome. Additionally, this may potentially result in the patient's left gona aydin vein reflux. Findings are concordant with preliminary interpretation provided by [facility]. Reviewed by: Ricco Estrella MD on 09/17/2023 8:17 AM PDT Approved by: Ricco Estrella MD on 09/17/2023 8:17 AM PDT Station ID: [id number]
[2023-09-17 08:23] LABS: BILIRUBIN,URINE NEGATIVE (NEGATIVE); CLARITY,URINE CLEAR (CLEAR); GLUCOSE, URINE (UA) NEGATIVE (NEGATIVE); KETONES,URINE (UA) NEGATIVE (NEGATIVE); LEUKOCYTE ESTERASE, URINE NEGATIVE (NEGATIVE); NITRITE,URINE NEGATIVE (NEGATIVE); OCCULT BLOOD,URINE NEGATIVE (NEGATIVE); PH,URINE 6.5 PH (5.0-7.5); PROTEIN,URINE NEGATIVE (NEGATIVE); UROBILINOGEN,URINE 0.2 (NORMAL) E.U./dL (NORMAL)
--- NOTE | 2023-09-17 08:52 | ED Physician Documentation ---
ED Addendum - Addendum Addendum: 09/17/23 08:49 33-year-old female signed out to me by Dr. Warren, see his note for full H&P. Briefly she has had epigastric pain, nausea and vomiting that started at approximately 2 AM. She was given IV fluids, Zofran, morphine. Took Phenergan at home. Tolerating p.o. well here. CT abdomen pelvis does not show any acute abnormalities. She is not . She states that she has been having intermittent epigastric pain for a while and does have pain after eating. Possible gastritis versus ulcer? No fevers. No chills. No recent travel. No recent antibiotics. Will place on pain medication, nausea medication, PPI and Carafate for home. We will have her follow-up with her PCP for further care. Can consider outpatient EGD. Patient counseled regarding signs and symptoms for which I believe and urgent re-evaluation would be necessary. Patient with good understanding of and agreement to plan and is comfortable going home at this time This document was made in part using voice recognition software. While efforts are made to proofread this document, sound alike and grammatical errors may occur. Departure - Departure Disposition: Home, Self Care Clinical Impression: Vomiting Qualifiers: Vomiting type: unspecified Nausea presence: with nausea Qualified Code(s): R11.2 - Nausea with vomiting, unspecified Abdominal pain Qualifiers: Abdominal location: epigastric Qualified Code(s): R10.13 - Epigastric pain Condition: Good Instructions: ED Nausea Vomiting, ED PUD Vs Gastritis Follow-Up: Kirsty Mckeon PA-C [Primary Care Provider] - Prescriptions: Sucralfate [Carafate] 1 gm PO ACHS #60 tablet Esomeprazole Magnesium [Nexium] 40 mg PO DAILY #30 cap Famotidine [Pepcid] 20 mg PO BID #60 tablet oxyCODONE [Roxicodone] 5 - 10 mg PO Q6H PRN #14 tablet MDD 6 PRN Reason: pain Ondansetron Odt [Zofran] 4 mg TL Q6H PRN #10 tablet PRN Reason: Nausea / Vomiting Comments: Your prescriptions were sent to [facility]. We will trial you on medication for gastritis versus peptic ulcer disease. Your doctor can refer you for an endoscopy to have this further evaluated. Make sure you are drinking plenty of fluids. Avoid caffeine, energy drinks, fried foods and spicy foods. Avoid NSAIDs as well. Your CT scan read is below as well, you can follow-up with your doctor regarding the venous abnormalities. I am prescribing a short course of narcotic pain medication for you. These are potentially dangerous and addictive medications that should be used carefully. These medications may constipate you. Take an quvs-pyk-prtqpty stool softener (docusate) twice daily with plenty of water while taking these medications. If you go 24 hours without a bowel movement, take kyar-wuh-nywcqel miralax, per package instructions. Do not drink or drive while taking these medications. If you received narcotic or sedating medications while in the emergency department, do not drive for 24 hours. Store this medication in a safe, secure place and out of reach of children. It is a violation of federal law to give or sell this medication to another person or to use in a manner other than prescribed. The ED will not refill narcotic prescriptions, including prescriptions lost or stolen. To dispose of unwanted medications: 1. [facility] [address] in [place] has a medication drop box. They accept prescription medications (in pill form) Sunday through Sunday 9:00 a.m. to 5:00 p.m. 2. [facility] accepts prescription medications (in pill form only) for disposal year round. Call for more information. 3. Contact the [facility] for the next [facility] sponsored prescription ja g collection event. , [phone], or [phone]; EXAM: [id number] CT/ABPEW ([id number]) PROCEDURE: Abdomen/Pelvis W INDICATIONS: Epigastric abd pain CONTRAST: 100 ML OMNI 300 TECHNIQUE: After the administration of intravenous contrast, a CT scan of the abdomen and pelvis was performed. Images were recorded and evaluated at appropriate window settings. Reformats: coronal and sagittal. For radiation dose reduction, the following was used: automated exposure control, adjustment of mA and/or kV according to patient size. COMPARISON: None. FINDINGS: Image quality: Diagnostic. Lower chest: Unremarkable. Liver: No solid mass. Gallbladder: No radiopaque stones or wall thickening. Biliary tree: No intrahepatic or extrahepatic dilation, accounting for age. Spleen: No splenomegaly. Pancreas: No pancreatic ductal dilation. Adrenals: No adrenal nodule. Kidneys and ureters: No hydronephrosis. No renal cystic lesion which requires follow up. No solid mass. Stomach, bowel and peritoneum: No gastric or small bowel dilation. No abnormal wall thickening. No pathologic free fluid. Lymph nodes: No central or retroperitoneal adenopathy. Vessels: No infrarenal aortic aneurysm. Patent portal vein. Note is made of a dilated left canal vein with prolonged reflux characterized 2 left paraovarian varicosities. These are prominent. A dilated contrast-filled branch of the left internal iliac vein draining the varicosities is also noted. There is narrowing of the left renal vein as it crosses between the SMA and the aorta. There is a prominent paravertebral collateral drainage pathway off the left renal vein seen on image 44 through 46 of axial series 2.. PELVIS Reproductive organs: Unremarkable. Bladder: No abnormal wall thickening, accounting for underdistention. Pelvic lymph nodes: No pelvic adenopathy by size criteria. Bones: No aggressive osseous abnormality. Other: No significant ventral or inguinal hernia. IMPRESSION: 1. No acute abdominal process is noted. No findings which explain epigastric abdominal pain. 2. 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 In a subset of patients, this can correlate with a clinical syndrome of chronic pelvic venous congestion. Most patients do not have symptoms. 3. There is drainage from the left paraovarian varicosities into the internal iliac on the left, felt to most likely represent normal drainage and is not a AVM. 4. Narrowing of the left renal vein as it crosses between the SMA and the aorta with a prominent collateral drainage pathway present. In a small subset of patients, this can correlate with the clinical syndrome of Nutcracker syndrome. Additionally, this may potentially result in the patient's left gonadal vein reflux. Findings are concordant with preliminary interpretation provided by [facility]. Forms: PCP List
[2023-09-17 09:18] VITALS: BP 135/95; O2SAT 98
== END 2023-09-17 09:23 | disposition home or self-care (01) ==
LOC: ED 05:20
DX: R10.13 Epigastric pain (principal); R11.2 Nausea with vomiting, unspecified
CPT/HCPCS: 36415; 74177; 80053; 81003; 83690; 85025; 87633; 96374; 96375; 96376; 99284; Q9967; 81001; 87086

== ENCOUNTER 2023-09-18 01:48 | Emergency (ER) | payer BC ==
[2023-09-18 02:11] LABS: BASOPHILS % (AUTO) 0.3 %; EOSINOPHILS % (AUTO) 0.1 %; HCT - HEMATOCRIT 42.5 % (37.0-47.0); HGB - HEMOGLOBIN 13.2 g/dL (12.0-16.0); LYMPHOCYTES # (AUTO) 1.7 10^3/uL (1.5-3.5); LYMPHOCYTES % (AUTO) 18.8 %; MEAN CORPUSCULAR HEMOGLOBIN 27.4 pg (27.0-31.0); MEAN CORPUSCULAR HGB CONC 31.1 g/dL (32.0-36.0); MEAN CORPUSCULAR VOLUME 88.4 fL (81.0-99.0); MEAN PLATELET VOLUME 8.8 fL (7.9-10.8); MONOCYTES # (AUTO) 0.7 10^3/uL (0.0-1.0); MONOCYTES % (AUTO) 7.2 %; NEUTROPHILS # (AUTO) 6.7 10^3/uL (1.5-6.6); NEUTROPHILS % (AUTO) 73.4 %; PLT - PLATELET COUNT 297 10^3/uL (130-450); RED BLOOD COUNT 4.81 10^6/uL (4.20-5.40); RED CELL DISTRIBUTION WIDTH 13.4 % (12.0-15.0); WHITE BLOOD COUNT 9.2 x10^3/uL (4.8-10.8)
[2023-09-18] MEDS: SODIUM CHLORIDE 0.9% 1,000 ML IV STA (02:24)
[2023-09-18] MEDS: ONDANSETRON 4 MG/2 ML VIAL IVP STA ×2 (02:24→08:59)
[2023-09-18 02:27] LABS: ALBUMIN 3.9 g/dL (3.2-5.5); ALBUMIN/GLOBULIN RATIO 1.4 (1.0-2.2); ALKALINE PHOSPHATASE 50 IU/L (42-121); ALT ALANINE AMINOTRANSFERASE 10 IU/L (10-60); AST ASPARTATE AMINOTRANSFERASE 11 IU/L (10-42); BILIRUBIN,TOTAL 0.3 mg/dL (0.2-1.0); BUN - BLOOD UREA NITROGEN 10 mg/dL (6-20); CALCIUM 9.1 mg/dL (8.5-10.3); CARBON DIOXIDE - CO2 26 mmol/L (21-32); CHLORIDE 105 mmol/L (101-111); CREATININE 0.7 mg/dL (0.6-1.3); GFR - MDRD 96 (>89); GLUCOSE 132 mg/dL (74-104); LIPASE < 10 U/L (11-82); POTASSIUM 3.4 mmol/L (3.5-4.5); SODIUM 138 mmol/L (135-145); TOTAL PROTEIN 6.7 g/dL (6.4-8.9)
[2023-09-18] MEDS ORDERED: iohexoL-300 100 ML VIAL ONE (02:28)
[2023-09-18] MEDS: HYDROmorphone 1 MG/ML CARPUJECT IVP STA (02:37)
[2023-09-18] MEDS: iohexoL-300 100 ML VIAL IVP ONE (03:01)
[2023-09-18] MEDS: DROPERIDOL 5 MG/2 ML VIAL IVP STA (03:16)
--- NOTE | 2023-09-18 06:27 | ED Physician Documentation ---
PD HPI ABD PAIN - Stated complaint Stated Complaint: ABD PX - Chief complaint Chief Complaint: Abd Pain - History obtained from History obtained from: Patient - Additional information Additional information: The patient presents to the emergency department with worsening abdominal pain. She was seen yesterday for the same to thing and at that time, it was focused more in her central abdomen. She had a white blood cell count of 17.7, and a CT scan that showed some venous congestion in the pelvis, and the possibility of some left renal vein compression and "nutcracker syndrome". Otherwise, the p atient's workup was unremarkable. She was stable at that time and ultimately discharged home. However, she states that her pain meds at home are not touching her pain. She has taken her narcotic pain medication there as well as anti-inflammatory medication. 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 She states that she has noticed the pain has spread all over her abdomen and she is just generally uncomfortable. She is also nauseated. Patient states it is a burning pain and spreads all over her abdomen and she just felt so awful at home she decided to come in. No other complaints at this time. 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 : None HEENT: None Psych: Anxiety Musculoskeletal: Osteoarthritis Derm: None - Past Surgical History Past Surgical History: Yes /SHIELD CLEANER: Other - Present Medications Home Medications: Ambulatory Orders Medication Instructions Recorded Confirmed Drospirenone [Slynd] See Rx Instructions .ROUTE .COMPLEX 09/17/23 09/17/23 Esomeprazole Magnesium [Nexium] 40 mg PO DAILY #30 cap 09/17/23 Famotidine [Pepcid] 20 mg PO BID #60 tablet 09/17/23 Ondansetron Odt [Zofran] 4 mg TL Q6H PRN #10 tablet 09/17/23 Sucralfate [Carafate] 1 gm PO ACHS #60 tablet 09/17/23 buPROPion [Wellbutrin Xl] 150 mg PO DAILY 09/17/23 09/17/23 oxyCODONE [Roxicodone] 5 - 10 mg PO Q6H PRN #14 tablet 09/17/23 MDD 6 - Allergies Allergies/Adverse Reactions: Allergies Allergy/AdvReac Type Severity Reaction Status Date / Time No Known Drug Allergies Allergy Verified 09/18/23 01:55 - Social History Does the pt smoke?: No Smoking Status: Never smoker Does the pt drink ETOH?: No Does the pt have substance abuse?: No - Immunizations Immunizations are current?: Yes - POLST Patient has POLST: No PD ED PE NORMAL - Vitals Vital signs reviewed: Yes - General General: Alert and oriented X 3, Well developed/nourished, Other (The patient is not in distress but appears visibly uncomfortable.) - HEENT HEENT: Atraumatic, EOMI, Moist mucous membranes - Neck Neck: Supple, no meningeal sign - Cardiac Cardiac: RRR, No murmur - Respiratory Respiratory: No respiratory distress, Clear bilaterally - Abdomen Abdomen: Soft, Non distended, Other (Diffusely moderately tender, no rebound or guarding.) - Derm Derm: Normal color, Warm and dry, No rash - Extremities Extremities: No deformity, No edema - Neuro Neuro: Other (Alert, grossly oriented, grossly intact) - Psych Psych: Normal mood, Normal affect Results - Vitals Vitals: Vital Signs - 24 hr 09/18/23 09/18/23 09/18/23 01:53 02:08 03:54 Temperature 36.4 C L Heart Rate 103 H 100 100 Respiratory 18 16 Rate Blood Pressure 133/91 H 122/84 H O2 Saturation 98 100 09/18/23 06:00 Temperature Heart Rate 99 Respiratory 16 Rate Blood Pressure 127/80 O2 Saturation 98 Oxygen O2 Source Room air - Labs Labs: Laboratory Tests 09/18/23 09/18/23 02:05 02:05 WBC 9.2 RBC 4.81 Hgb 13.2 Hct 42.5 MCV 88.4 MCH 27.4 MCHC 31.1 L RDW 13.4 Plt Count 297 MPV 8.8 Neut # (Auto) 6.7 H Lymph # (Auto) 1.7 Kay # (Auto) 0.7 Eos # (Auto) 0.0 Baso # (Auto) 0.0 Absolute Nucleated RBC 0.00 Nucleated RBC % 0.0 Sodium 138 Potassium 3.4 L Chloride 105 Carbon Dioxide 26 Anion Gap 7.0 BUN 10 Creatinine 0.7 Estimated GFR (MDRD) 96 Glucose 132 H Calcium 9.1 Total Bilirubin 0.3 AST 11 ALT 10 Alkaline Phosphatase 50 Total Protein 6.7 Albumin 3.9 Globulin 2.8 Albumin/Globulin Ratio 1.4 Lipase < 10 L PD Medical Decision Making - ED course Complexity details: reviewed old records, reviewed results, re-evaluated patient, considered differential, d/w patient ED course: The patient appeared quite uncomfortable and given her white count yesterday, I felt she should be worked up again. Today her white blood cell count was just over 9. Her hemoglobin was 6 about 1.7 g lower today than yesterday, though the patient had not noted bleeding anywhere. I sent her for a CT angiogram of the abdomen and pelvis and this continue to show some venous congestion in the pelvis but no other concerning findings. The patient was feeling somewhat better after the Dilaudid but still nauseated after Zofran. I ordered a dose of droperidol for her and this did seem to help her symptoms quite a bit. The patient stated that she had had pain like this before in 2017 or 18 and that she had 3 CTs before they finally decided to do an ultrasound and found that she had bleeding from an ovary. I did discuss with the patient that I would expect the CT angiogram to reveal a problem like this if present but nonetheless, since the patient's pain seems to have gotten inexplicably worse, we can get an ultrasound. The other possibility is to consult surgery and see if there is anything else that they might be able to offer to this patient with worsening abdominal pain. Patient was agreeable to the plan. At this point in time, the patient continues to await ultrasound here in the emergency department. She has been more comfortable since having the droperidol, and has not required further symptomatic treatment. The patient be signed out to Dr. Toure at change of shift, pending ultrasound and final disposition. Departure - Departure Forms: PCP List
[2023-09-18 08:51] VITALS: BP 129/93; O2SAT 96
[2023-09-18] MEDS: MORPHINE 10 MG/ML VIAL IVP STA (08:59)
[2023-09-18] MEDS: KETOROLAC 15 MG/ML VIAL IVP STA (08:59)
--- NOTE | 2023-09-18 09:55 | CT Report ---
PROCEDURE: Angio Abdomen/Pelvis INDICATIONS: significantly worsening mid-abd pain CONTRAST: Omni 300, 100mls TECHNIQUE: After the administration of intravenous contrast, 2.5 mm thick sections acquired from the diaphragm t o the symphysis. 10 mm maximum-intensity projection (MIP) reformats were then acquired. For radiati on dose reduction, the following was used: automated exposure control, adjustment of mA and/or kV ac cording to patient size. COMPARISON: CT abdomen pelvis 09/17/2019 FINDINGS: Image quality: Excellent. Aorta: No hemodynamically significant stenosis, vascular occlusion or aneurysmal dilation. No dissec tion. Mesenteric arteries: Celiac trunk, superior and inferior mesenteric arteries appear patent. Renal arteries narrowing of the left renal vein as it crosses between the superior mesenteric artery and the aorta with collateral drainage. Pelvic arteries: As seen on prior exam, increased vascularity with ovarian left varicosities which c an represent pelvic congestion syndrome. Extravascular soft tissues: Lung bases are clear. Heart size is normal. Liver and spleen are concha l in size and enhancement. Gallbladder is unremarkable. Biliary system is non dilated. Pancreas en hances normally. No adrenal nodules. Questionable minimal hypoenhancement of the posterior superior right kidney compared to the left. Mild thickening of the distal stomach. Non opacified bowel loops are normal in wall thickness and caliber. No free fluid or air. No retroperitoneal or mesenteric ad enopathy. No ventral hernias. No suspicious bony lesions. No vertebral body compression fractures. IMPRESSION: Mild thickening of the distal stomach overall nonspecific. This could be secondary to incomplete dist ention versus potential gastritis. Questionable asymmetric hypoenhancement in the posterior superior right kidney. While this could be a rtifactual, mild appearance of infection such as pyelonephritis cannot be definitively excluded. Previous identified mildly prominent ovarian vascular appearance which may be related to pelvic conge stion syndrome. Previously noted mild thickening of the left renal vein between the SMA and the aorta. As previously noted, this can be related to not cracker syndrome. Ultrasound may be helpful for further evaluation as indicated. The above findings are concordant with preliminary report. Reviewed by: Carmen Salcido MD on 09/18/2023 9:53 AM PDT Approved by: Carmen Salcido MD on 09/18/2023 9:53 AM PDT Station ID: [id number]
--- NOTE | 2023-09-18 12:00 | Ultrasound Report ---
PROCEDURE: Pelvic w/Transvag+Doppler Comp INDICATIONS: worsening low abd/pelvic pain TECHNIQUE: Real-time scanning was performed of the pelvic organs, with image documentation. Additional endovagi nal scanning was necessary due to incomplete visualization of the adnexal and endometrial structures by transabdominal scanning. Doppler interrogation was performed of the ovaries bilaterally. COMPARISON: CT angiogram of the abdomen and pelvis dated 09/18/2023, CT abdomen and pelvis dated 09/16. FINDINGS: Uterus: Uterus is anteverted and normal in size at 5.0 x 2.4 x 3.0 cm. The myometrium is homogeneou s. The endometrium measures 0.9 mm in combined thickness. No fibroids Ovaries: The right ovary measures 2.5 x 1.0 x 2.5 cm, with a calculated ovarian volume of 3.3 cc. T he left ovary measures 2.7 x 1.2 x 0.8 cm, with a calculated ovarian volume of 1.3 cc. Appropriate b lood flow to the ovaries with Doppler interrogation. Less than 12 follicles can be seen in each ova ry. No adnexal masses are seen. No cystic lesions measuring greater than 3 cm.. Again noted are left paraovarian varicosities. Other: No pathologic free abdominal or pelvic fluid. IMPRESSION: 1. Left paraovarian varicosities in a patient with a dilated left gonadal vein with reflux seen on pr evious CT. This finding can support a clinical diagnosis of chronic pelvic venous congestion syndrome , which is present in a subset of individuals with this finding. 2. Normal ovaries with no evidence of ovarian torsion. 3. Otherwise unremarkable study. Reviewed by: Ricco Estrella MD on 09/18/2023 11:59 AM PDT Approved by: Ricco Estrella MD on 09/18/2023 11:59 AM PDT Station ID: [id number]
[2023-09-18] MEDS ORDERED: LIDOCAINE VISCOUS 2% 15 ML UDC MM ONE (14:00)
[2023-09-18] MEDS ORDERED: ACETAMINOPHEN 500 MG TABLET PO ONE (14:00)
[2023-09-18] MEDS ORDERED: MORPHINE 10 MG/ML VIAL IVP ONE (14:00)
[2023-09-18] MEDS ORDERED: MAG HYDROX/AL HYDROX/SIMETH 30 ML UDC PO ONE (14:00)
--- NOTE | 2023-09-18 21:41 | ED Physician Documentation ---
ED Addendum - Addendum Addendum: 09/18/23 21:36 Patient did require more pain med dosing to keep symptoms calmer. US was busy with outpt and was able to get to patient subsequently. No acute findings in pelvic US, with note of some hyperemia left ovary. This had had comment of some vascular venous congestion on CT. I presume the same. Good arterial flow to ovary. No free fluid. No acute process otherwise. Recheck of abdomen is tender mid to upper abd. Presume gastritis/ulcer type process. Had been Rx PPI, Carafate, Zofran, and oycodone yesterday visit. Ask for some more of thepain meds. Pt denies BM in past few days. No noted melena. No vaginal bleeding. I tlaked with Dr. Moreira, python programmer surgery, after US report verbal from Ailyn Quippi. Pt to continue prior meds and follow up in [facility]. Dr. Moreira is full this week then on vacation fro 2 weeks, so pt to make appt with whomever is next free for the next few days. Dispositon: discharged in stable condition. Diagnosis; Mid to upper abd pain 2. presumed gastritis vs ulcer
== END 2023-09-18 12:15 | disposition home or self-care (01) ==
LOC: ED 01:48
DX: R10.10 Upper abdominal pain, unspecified (principal); Z79.899 Other long term (current) drug therapy
CPT/HCPCS: 36415; 74174; 76830; 76856; 80053; 83690; 85025; 93975; 96374; 96375; 99285; A9270; J1170; Q9967

== ENCOUNTER 2023-10-30 04:09 | Outpatient (CLI) | payer BC ==
[2023-10-30 04:53] LABS: BASOPHILS # (AUTO) 0.1 10^3/uL (0.0-0.1); BASOPHILS % (AUTO) 0.7 %; EOSINOPHILS # (AUTO) 0.1 10^3/uL (0.0-0.7); HGB - HEMOGLOBIN 13.7 g/dL (12.0-16.0); LYMPHOCYTES # (AUTO) 3.3 10^3/uL (1.5-3.5); LYMPHOCYTES % (AUTO) 43.3 %; MEAN CORPUSCULAR HEMOGLOBIN 28.2 pg (27.0-31.0); MEAN CORPUSCULAR HGB CONC 31.9 g/dL (32.0-36.0); MEAN CORPUSCULAR VOLUME 88.7 fL (81.0-99.0); MEAN PLATELET VOLUME 8.9 fL (7.9-10.8); MONOCYTES # (AUTO) 0.6 10^3/uL (0.0-1.0); MONOCYTES % (AUTO) 7.4 %; NEUTROPHILS # (AUTO) 3.6 10^3/uL (1.5-6.6); NEUTROPHILS % (AUTO) 47.2 %; PLT - PLATELET COUNT 387 10^3/uL (130-450); RED BLOOD COUNT 4.85 10^6/uL (4.20-5.40); RED CELL DISTRIBUTION WIDTH 12.8 % (12.0-15.0); WHITE BLOOD COUNT 7.7 x10^3/uL (4.8-10.8)
[2023-10-30 05:14] LABS: ALBUMIN 4.6 g/dL (3.2-5.5); ALBUMIN/GLOBULIN RATIO 1.5 (1.0-2.2); BILIRUBIN,TOTAL 0.2 mg/dL (0.2-1.0); CALCIUM 9.8 mg/dL (8.5-10.3); CREATININE 0.7 mg/dL (0.6-1.3); POTASSIUM 3.7 mmol/L (3.5-4.5); TOTAL PROTEIN 7.6 g/dL (6.4-8.9)
[2023-10-30 09:56] LABS: ESTIMATED AVERAGE GLUCOSE 105 mg/dL (70-100); HEMOGLOBIN A1c% 5.3 % (4.27-6.07)
== END 2023-10-30 04:10 | disposition home or self-care (01) ==
LOC: LAB 04:09
PROVIDERS: ATTEND Physician Assistant Medical
DX: R10.13 Epigastric pain (principal); R73.9 Hyperglycemia, unspecified
CPT/HCPCS: 36415; 80053; 83036; 85025

== ENCOUNTER 2023-10-31 21:01 | Outpatient (CLI) | payer BC ==
--- NOTE | 2023-11-01 11:43 | Ultrasound Report ---
PROCEDURE: Abdomen Limited INDICATIONS: EPIGASTRIC PAIN TECHNIQUE: Preprandial and postprandial vascular sonographic measurements of the superior mesenteric artery were acquired. COMPARISONS: CT abdomen and pelvis angiogram 09/18/2023 FINDINGS: Preprandial measurements of the peak systolic/end-diastolic ratios and peak systolic velocities for t he superior mesenteric artery: Origin: 5.48; 280.9 cm/s Proximal: 7.23; 192.6 cm/s Mid: 10.37; 96.0 cm/s Distal: 9.64; 138.3 cm/s Postprandial measurements of the peak systolic/end-diastolic ratios and peak systolic velocities for the proximal superior mesenteric artery: 5 minutes: 7.08; 200 cm/s 10 minutes: 4.65; 225.3 cm/s 15 minutes: 5.52; 267.4 cm/s 20 minutes: 4.35; 244.8 cm/s 30 minutes: 4.79; 197.1 cm/s Normal preprandial and postprandial arterial waveforms are identified. IMPRESSION: No sonographic evidence of superior mesenteric artery syndrome, given the increase in postprandial ve locities and normal waveforms. Reviewed by: Chano Corbett MD on 11/01/2023 11:42 AM PDT Approved by: Chano Corbett MD on 11/01/2023 11:42 AM PDT Station ID: [id number]
== END 2023-10-31 21:02 | disposition home or self-care (01) ==
LOC: DI 21:01
PROVIDERS: ATTEND Physician Assistant Medical
DX: R10.13 Epigastric pain (principal)